=== PATIENT | male | born 1930 | race Caucasian/White ===

== ENCOUNTER 2016-02-21 05:10 | Outpatient (RCR) | payer MEDICARE, OTHER ==
--- OUTSIDE RECORDS SUMMARY | 2016-01-24 06:13 | XMS REPORT | Continuity of Care Document ---
Author Author [facility] Organization [facility] Address Unknown Phone Unavailable Care Team Providers Care Delivery And Mail Sorter Name Role Phone Unverified, Unverified PCP Unavailable Source Comments Some departments are not documenting in the electronic medical record. If you do not see the information that you expected, contact Release of Information in the Health Information Management department at [phone] for further assistance in locating additional records.[facility] Active Allergies and Adverse Reactions No Known Allergies Current Medications Prescription Sig. Disp. Refills Start End Date Status Date simvastatin (ZOCOR) 40 mg Take 40 mg by mouth at Active PO tablet bedtime daily. Aspirin 81 mg PO Tab Take by mouth. Active DOCOSAHEXANOIC ACID/EPA Take 1,000 mg by mouth Active (FISH OIL PO) twice daily. WARFARIN SODIUM (COUMADIN Take 10 mg by mouth Active PO) daily. 7.5 mg every day except tues and thurs DUTASTERIDE (AVODART PO) Take 0.5 mg by mouth. Active Daily cholecalciferol (Vitamin Take 1,000 Units by mouth Active D3) (VITAMIN D) 1,000 daily. unit PO Tab tablet diltiazem CD (CARTIA XT) Take 240 mg by mouth Active 240 mg PO capsule twice daily. [place] 450 mg PO Take by mouth. Active Cap HOMEOPATHIC DRUGS Take by mouth. Active (OSTEO-NIKOLAY PO) Active Problems Problem Noted Date Atrial flutter with rapid ventricular response (HCC) 06/05/2010 Overview: : Sucessful cardioversion AFL/ AF. 06-11-08: Echo 2D: mild cardiomegaly, EF 60%, No distinct regional wall motion abnormalities. No significant pericardial effusion. Normal valve functions with Mild Ao sclerosis. Trivial to mild MR & TR. PAP 40mmHg. LA diameter 3.6cm. 3-7-11: admitted to [place], [place] with AFL w. RVR. Hx of paroxsymal AFL & AF, treated with amiodarone. Amio discontinued several mo ago. Treated with IV dig & diltiazem in ICU, on chronic anticoagulation with warfarin for stroke prophylaxis. Hyperlipidemia 06/05/2010 Overview: Treated with simvastatin. Coronary artery disease 06/05/2010 Overview: 02-15-06: Cardiac cath in [place], [place] showed: sev ostila & prox stenosis of large caliber ramus intermedius artery. EF 50%, LV function mildly impaired, mild anterolateral hypokinesis. Moderate dissection of right iliofemerol artery at the time of cath, very tortuous vessel on R. CABG recommended to ramus intermedius at [place], [place]. 02-16-06: CABGx1: CRUZ to ramus intermedius. Carotid duplex ( DOS no known) mild disease bilaterally 1-39% with mild velocities & antegrade vertebral flow. : Myocardial perfusion imaging reportedly did not show ischemia or infarction, normal LV function with EF 64%, per Dr Horton's office notes. Hypothyroidism (acquired) 06/05/2010 Overview: : Possibly from amiodarone therapy. Amio dc'd several months ago. Leg edema 06/05/2010 Overview: : Abnormal ankle brachial indices mildly abnormal on L side. 0.8. Mild L leg swelling. History of atrial fibrillation 06/05/2010 Overview: : successful cardioversion for paroxysmal Afib. Pericardial effusion 06/05/2010 Overview: Reportedly remote history of pericardial effusion. Echo no effusion noted. Chronic renal insufficiency 06/05/2010 Overview: Creatinine range 1.5-1.6 Social History Tobacco Use Types Packs/Day Years Used Date Never Smoker Smokeless Tobacco: Never Used Alcohol Use Drinks/Week oz/Week Comments Yes 4 Shots of 2.4 liquor Last Filed Vital Signs Vital Sign Reading Time Taken Blood Pressure 131/70 06/21/2010 8:50 AM CDT Pulse 59 06/06/2010 1:06 PM CDT Temperature - - Respiratory Rate - - Height 1.753 m (5' 9") 06/21/2010 10:10 AM CDT Weight 90.4 kg (199 lb 4.7 oz) 06/21/2010 10:10 AM CDT Body Mass Index 29.42 06/21/2010 10:10 AM CDT Oxygen Saturation - - Plan of Care Health Maintenance Due Date Last Done Comments Physical (Comprehensive) 07/24/1937 Exam Pertussis Vaccine 07/24/1942 Tetanus Vaccine 07/24/1948 Shingles Vaccine 1991 Prevnar/Pneumovax (#1) 07/24/1996 Influenza Vaccine 11/17/2014 Results from Last 3 Months Not on file
[2016-01-24 06:38] LABS: INR 1.7 (0.8-1.4)
[2016-02-02 05:48] LABS: INR 2.7 (0.8-1.4); PROTHROMBIN TIME PATIENT 28.3 SEC (12.2-14.7)
[~2016-02-21 05:10] MED LIST: ASP81CT PO; AVOD0.5CAP PO; CASC450C PO; CHOL50003 PO; DIGO250T PO; DILT120C PO; DILT120C54 PO; DILT180C PO; DILT240C PO; DILT240C54 PO; FERR325C PO; FNST5T PO; GARL200T PO; LVT.05T PO; OMEG1CAP51 PO; ONDAN4ODT SL; OSTEOBIOFLEX PO; PYRI50CA PO; RAPAFLO; SILO8CAP PO; SIMV40TA2 PO; THYROID MED; VENL75CA PO; WARF7.5T PO; WRF10T PO; [UNRECOGNIZED DRUG - OTHER] PO
[2016-02-21 05:39] LABS: INR 2.1 (0.8-1.4); PROTHROMBIN TIME PATIENT 23.5 SEC (12.2-14.7)
== END 2016-04-23 | disposition home or self-care (01) ==
LOC: LAB 05:10
PROVIDERS: ATTEND Internal Medicine Cardiovascular Disease
DX: I48.91 Unspecified atrial fibrillation (principal); Z79.01 Long term (current) use of anticoagulants; Z79.899 Other long term (current) drug therapy
CPT/HCPCS: 36415; 85610

== ENCOUNTER 2016-07-04 10:19 | Outpatient (RCR) | payer MEDICARE, OTHER ==
--- OUTSIDE RECORDS SUMMARY | 2016-04-10 09:15 | XMS REPORT | Continuity of Care Document ---
Author Author [facility] Organization [facility] Address Unknown Phone Unavailable Care Team Providers Care Director Software Quality Assurance Name Role Phone Unverified, Unverified PCP Unavailable Source Comments Some departments are not documenting in the electronic medical record. If you do not see the information that you expected, contact Release of Information in the Health Information Management department at [phone] for further assistance in locating additional records.[facility] Active Allergies and Adverse Reactions No [...] 40mmHg. LA diameter 3.6cm. 3-7-11: admitted to [place], [place] with AFL w. RVR. Hx of paroxsymal AFL & AF, treated with amiodarone. Amio discontinued several mo ago. Treated with IV dig & diltiazem in ICU, on chronic anticoagulation with warfarin for stroke prophylaxis. Hyperlipidemia 06/05/2010 Overview: Treated with simvastatin. Coronary artery disease 06/05/2010 Overview: 02-15-06: Cardiac cath in [place], [place] showed: sev ostila & prox stenosis of large caliber ramus intermedius artery. EF 50%, LV function mildly impaired, mild anterolateral hypokinesis. Moderate dissection of right iliofemerol artery at the time of cath, very tortuous vessel on R. CABG recommended to ramus intermedius at [place], [place]. 02-16-06: CABGx1: CRUZ to ramus intermedius. [...]
== END 2016-07-09 | disposition home or self-care (01) ==
PROVIDERS: ATTEND Internal Medicine
DX: M50.322 Other cervical disc degeneration at C5-C6 level (principal)

== ENCOUNTER → 2016-07-06 | Outpatient (CLI) | payer MEDICARE, OTHER ==
[2016-07-06 07:11] LABS: CALCIUM 9.2 MG/DL (8.5-10.1); CREATININE SERUM 1.2 MG/DL (0.60-1.30); POTASSIUM 4.1 MMOL/L (3.6-5.0)
== END ==
LOC: LAB 06:28
PROVIDERS: ATTEND Internal Medicine
DX: E78.5 Hyperlipidemia, unspecified (principal); I48.0 Paroxysmal atrial fibrillation
CPT/HCPCS: 36415; 80048; 80061

== ENCOUNTER 2016-08-15 10:00 | Outpatient (RCR) | payer MEDICARE, OTHER | END 2016-08-29 15:35 | disposition home or self-care (01) | PROVIDERS: ATTEND Orthopaedic Surgery | DX: M50.322 Other cervical disc degeneration at C5-C6 level (principal) ==

== ENCOUNTER → 2016-12-14 | Outpatient (CLI) | payer MEDICARE, OTHER ==
[2016-12-14 05:54] LABS: ALBUMIN 3.9 GM/DL (3.2-4.5); BILIRUBIN,TOTAL 0.4 MG/DL (0.1-1.0); CALCIUM 9.4 MG/DL (8.5-10.1); CREATININE SERUM 1.16 MG/DL (0.60-1.30); TOTAL PROTEIN 6.9 GM/DL (6.4-8.2)
== END ==
LOC: LAB 04:50
PROVIDERS: ATTEND Internal Medicine Cardiovascular Disease
DX: E78.4 Other hyperlipidemia (principal); I25.10 Atherosclerotic heart disease of native coronary artery without angina pectoris
CPT/HCPCS: 36415; 80053; 80061

== ENCOUNTER 2017-08-08 10:15 | Outpatient (RCR) | payer MEDICARE, OTHER | END 2017-08-14 | disposition home or self-care (01) | PROVIDERS: ATTEND Nurse Practitioner | DX: M50.322 Other cervical disc degeneration at C5-C6 level (principal) ==

== ENCOUNTER 2017-08-17 13:41 | Emergency (ER) | payer MEDICARE, OTHER ==
[~2017-08-17] VITALS: Ht 175.3 cm; Wt 86.6 kg
--- OUTSIDE RECORDS SUMMARY | 2017-08-17 13:46 | XMS REPORT | Clinical Summary ---
Author Author [facility] Organization [facility] Address Unknown Phone Unavailable Care Team Providers Care Echocardiograph Tech Name Role Phone Unverified, Unverified Md PCP Unavailable Source Comments Some departments are not documenting in the electronic medical record. If you do not see the information that you expected, contact Release of Information in the Health Information Management department at [phone] for further assistance in locating additional records.[facility] Allergies No Known Allergies Current Medications Prescription Sig. [...] mg by mouth Active 240 mg PO twice daily. capsuleIndications: Atrial flutter with rapid ventricular response (HCC), Hyperlipidemia, Coronary artery disease Cascara [place] 450 mg PO Take by mouth. Active CapIndications: Atrial flutter with rapid ventricular response (HCC), Hyperlipidemia, Coronary artery disease HOMEOPATHIC DRUGS Take by mouth. Active (OSTEO-NIKOLAY PO)Indications: Atrial flutter with rapid ventricular response (HCC), Hyperlipidemia, Coronary artery disease Active Problems Problem Noted Date Atrial flutter with rapid ventricular response (HCC) 06/05/2010 Overview: : Sucessful cardioversion AFL/ AF. 06-11-08: Echo 2D: mild cardiomegaly, EF 60%, No distinct regional wall motion abnormalities. No significant pericardial effusion. Normal valve functions with Mild Ao sclerosis. Trivial to mild MR & TR. PAP 40mmHg. LA diameter 3.6cm. 05-23-10: admitted to [place], [place] with AFL w. RVR. Hx of paroxsymal AFL & AF, treated with amiodarone. Amio discontinued several mo ago. Treated with IV dig & diltiazem in ICU, on chronic anticoagulation with warfarin for stroke prophylaxis. Hyperlipidemia 06/05/2010 Overview: Treated with simvastatin. Coronary artery disease 06/05/2010 Overview: 02-15-06: Cardiac cath in [place], [place] showed: sev ostila & prox stenosis of large caliber ramus intermedius artery. EF 50%, LV function mildly impaired, mild anterolateral hypokinesis. Moderate dissection of right iliofemerol artery at the time of cath, very tortuous vessel on R. CABG recommended to ramus intermedius at [place], [place]. 02-16-06: CABGx1: CRUZ to ramus intermedius. [...] renal insufficiency 06/05/2010 Overview: Creatinine range 1.5-1.6 Family History Relation Name Status Comments Father cancer Mother cancer Social History Tobacco Use Types Packs/Day Years Used Date Never Smoker Smokeless Tobacco: Never Used Alcohol Use Drinks/Week oz/Week Comments Yes 4 Shots of 2.4 liquor Sex Assigned at Date Recorded Not on file Last Filed Vital Signs Vital Sign Reading Time Taken Blood Pressure 131/70 06/21/2010 8:50 AM CDT Pulse 59 06/06/2010 1:06 PM CDT Temperature - - Respiratory Rate - - Oxygen Saturation - - Inhaled Oxygen - - Concentration Weight 90.4 kg (199 lb 4.7 oz) 06/21/2010 10:10 AM CDT Height 175.3 cm (5' 9") 06/21/2010 10:10 AM CDT Body Mass Index 29.43 06/21/2010 10:10 AM CDT Plan of Treatment Health Maintenance Due Date Last Done Comments PHYSICAL (COMPREHENSIVE) 07/24/1937 EXAM PERTUSSIS VACCINE 07/24/1942 TETANUS VACCINE 07/24/1948 SHINGLES VACCINE 1991 PNEUMONIA (PCV13/PPSV23) 07/24/1996 VACCINES (1 of 2 - PCV13) INFLUENZA VACCINE 12/17/2017 Results Not on filefrom Last 3 Months
--- OUTSIDE RECORDS SUMMARY | 2017-08-17 13:50 | XMS REPORT | Continuity of Care Document ---
Author Author [facility] Organization [facility] Address Unknown Phone Unavailable Allergies Active Description Code Type Severity Reaction Onset Reported/Identified Relationship to Patient Clinical Status Yes No Known Drug Allergies [id number] Drug Allergy Unknown N/A 07/17/2007 Medications There is no data. 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 09/02/2008 Ot 427.31 09/02/2008 Ot V58.61 12/16/2008 Ot 427.31 12/16/2008 Ot V58.61 03/17/2009 Ot 272.4 03/17/2009 Ot 414.01 03/17/2009 Ot 427.31 03/17/2009 Ot V58.61 03/17/2009 Ot V58.69 06/20/2009 Ot 427.31 06/20/2009 Ot V58.61 09/18/2009 Ot 244.3 09/18/2009 Ot 272.4 09/18/2009 Ot 401.9 09/18/2009 Ot 414.00 09/18/2009 Ot 427.31 09/18/2009 Ot 600.00 09/18/2009 Ot E849.0 09/18/2009 Ot E942.0 09/18/2009 Ot V45.81 09/18/2009 Ot V58.61 09/20/2009 Ot 427.31 09/20/2009 Ot V58.61 12/20/2009 Ot 427.31 12/20/2009 Ot V58.61 04/11/2010 Ot 427.31 04/11/2010 Ot V58.61 05/11/2010 Ot 523.8 05/18/2010 Ot 719.45 05/18/2010 Ot 722.52 05/18/2010 Ot 723.1 05/18/2010 Ot V57.1 05/24/2010 Ot 244.3 05/24/2010 Ot 272.4 05/24/2010 Ot 414.01 05/24/2010 Ot 427.32 05/24/2010 Ot 585.9 05/24/2010 Ot 790.92 05/24/2010 Ot E942.0 05/24/2010 Ot V45.81 05/24/2010 Ot V58.61 07/11/2010 Ot 427.31 07/11/2010 Ot V58.61 08/09/2010 Ot 397.0 08/09/2010 Ot 411.81 08/09/2010 Ot 414.01 08/09/2010 Ot 424.0 08/09/2010 Ot 427.31 08/09/2010 Ot 427.32 08/09/2010 Ot 585.9 08/09/2010 Ot 780.79 08/09/2010 Ot V58.61 08/09/2010 Ot V58.66 08/09/2010 Ot V58.69 10/12/2010 Ot 427.31 10/12/2010 Ot V58.61 01/08/2011 Ot 272.4 01/08/2011 Ot 414.00 01/08/2011 Ot 427.31 01/08/2011 Ot V58.61 01/08/2011 Ot V58.69 04/26/2011 Ot 272.4 04/26/2011 Ot 414.00 04/26/2011 Ot 427.31 04/26/2011 Ot V58.61 04/26/2011 Ot V58.69 08/09/2011 Ot 272.4 08/09/2011 Ot 414.00 08/09/2011 Ot 427.31 08/09/2011 Ot V58.61 08/09/2011 Ot V58.69 11/22/2011 Ot 272.4 11/22/2011 Ot 414.00 11/22/2011 Ot 427.31 11/22/2011 Ot V58.61 11/22/2011 Ot V58.69 02/21/2012 Ot 272.4 HYPERLIPIDEMIA NEC/NOS 02/21/2012 Ot 414.00 CORON ATHEROSCLER NOS TYPE VESSEL, NATIV 02/21/2012 Ot 427.31 ATRIAL FIBRILLATION 02/21/2012 Ot V58.61 ANTICOAGULANTS,LT,CURRENT USE 02/21/2012 Ot V58.69 OTH MED,LT, CURRENT USE 03/13/2012 Ot 787.03 VOMITING ALONE 03/13/2012 Ot 787.91 DIARRHEA 06/05/2012 Ot 427.31 ATRIAL FIBRILLATION 06/05/2012 Ot V58.61 ANTICOAGULANTS,LT,CURRENT USE 09/10/2012 ROSENDO HATCH 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 Ot 427.31 ATRIAL FIBRILLATION 09/10/2012 ROSENDO HATCH 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 Ot V58.61 ANTICOAGULANTS,LT,CURRENT USE 12/22/2012 BELA WHITTAKER MD Ot 244.9 HYPOTHYROIDISM NOS 12/22/2012 BELA WHITTAKER MD Ot 272.4 HYPERLIPIDEMIA NEC/NOS 12/22/2012 BELA WHITTAKER MD Ot 403.90 HYPTNSV CHR KID DIS, UNSPEC, W CHR KD ST 12/22/2012 BELA WHITTAKER MD Ot 414.00 CORON ATHEROSCLER NOS TYPE VESSEL, NATIV 12/22/2012 BELA WHITTAKER MD Ot 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 12/22/2012 BELA WHITTAKER MD Ot 427.31 ATRIAL FIBRILLATION 12/22/2012 BELA WHITTAKER MD Ot 427.32 ATRIAL FLUTTER 12/22/2012 BELA WHITTAKER MD Ot 427.89 CARDIAC DYSRHYTHMIAS NEC 12/22/2012 BELA WHITTAKER MD Ot 458.9 HYPOTENSION NOS 12/22/2012 BELA WHITTAKER MD Ot 585.9 CHRONIC KIDNEY DISEASE, UNSPECIFIED 12/22/2012 BELA WHITTAKER MD Ot 600.00 HYPERTROPHY (BENIGN) OF PROSTATE W/O URI 12/22/2012 BELA WHITTAKER MD Ot 995.27 OTHER DRUG ALLERGY 12/22/2012 BELA WHITTAKER MD Ot E942.0 ADV EFF CARD RHYTH REGUL 12/22/2012 BELA WHITTAKER MD Ot V45.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 12/25/2012 ROSENDO HATCH 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 Ot 427.31 ATRIAL FIBRILLATION 12/25/2012 ROSENDO HATCH 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 Ot V58.61 ANTICOAGULANTS,LT,CURRENT USE 01/02/2013 SUDARSHAN WANG, JAMIN [place]berry Ot 427.31 ATRIAL FIBRILLATION 04/02/2013 DANDRE WANG FACC, MICHLELE SALDIVARP CCDS Ot 427.31 ATRIAL FIBRILLATION 04/02/2013 DANDRE WANG FACC, MICHELLE SALDIVARP CCDS Ot V58.61 ANTICOAGULANTS,LT,CURRENT USE 04/02/2013 DANDRE WANG FACC, MICHELLE SALDIVARP CCDS Ot V58.83 ENCOUNTER FOR THERAPEUTIC DRUG MONITORIN 07/02/2013 DANDRE MD FACC, ALI FACP CCDS Ot 427.31 ATRIAL FIBRILLATION 07/02/2013 DANDRE WANG FACC, ALI FACP CCDS Ot V58.61 ANTICOAGULANTS,LT,CURRENT USE 07/02/2013 DANDRE WANG FACC, ALI FACP CCDS Ot V58.83 ENCOUNTER FOR THERAPEUTIC DRUG MONITORIN 10/01/2013 DANDRE WANG FACInés, ALI FACP CCDS Ot 427.31 ATRIAL FIBRILLATION 10/01/2013 DANDRE WANG FACInés, ALI FACP CCDS Ot V58.61 ANTICOAGULANTS,LT,CURRENT USE 10/01/2013 DANDRE MD FACC, ALI FACP CCDS Ot V58.83 ENCOUNTER FOR THERAPEUTIC DRUG MONITORIN 01/07/2014 DANDRE WANG FACC, ALI FACP CCDS Ot 427.31 ATRIAL FIBRILLATION 01/07/2014 DANDRE WANG FACC, ALI FACP CCDS Ot V58.61 ANTICOAGULANTS,LT,CURRENT USE 01/07/2014 DANDRE WANG FACInés, ALI FACP CCDS Ot V58.83 ENCOUNTER FOR THERAPEUTIC DRUG MONITORIN 02/09/2014 Ot 272.4 02/09/2014 Ot 414.01 02/09/2014 Ot 427.31 02/09/2014 Ot V58.61 02/09/2014 Ot V58.69 02/09/2014 Ot 721.3 02/09/2014 Ot 414.00 02/09/2014 Ot 427.31 02/09/2014 Ot V45.81 02/09/2014 Ot 729.5 02/09/2014 Ot 729.81 02/09/2014 Ot 427.32 02/09/2014 Ot 427.31 02/09/2014 Ot V58.61 02/09/2014 Ot 414.00 02/09/2014 Ot 427.31 02/09/2014 Ot 272.4 02/09/2014 Ot 414.00 02/09/2014 Ot 427.31 02/09/2014 Ot V58.61 02/09/2014 Ot V58.69 02/09/2014 Ot 272.0 02/09/2014 Ot 414.00 02/09/2014 Ot 794.5 02/09/2014 Ot 244.9 02/09/2014 Ot 244.9 02/09/2014 Ot 244.9 02/09/2014 Ot 427.31 02/09/2014 Ot V58.69 02/09/2014 REMEDIOS WANG, BELA Howard Ot 272.4 02/09/2014 BELA WHITTAKER MD Ot 427.31 02/09/2014 BELA WHITTAKER MD Ot 244.9 02/09/2014 BELA WHITTAKER MD Ot 272.0 02/09/2014 BELA WHITTAKER MD Ot 427.31 02/09/2014 BELA WHITTAKER MD Ot 356.9 02/09/2014 EAGLE AYALA 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 Ot 723.0 02/09/2014 EAGLE AYALA 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 Ot V45.4 02/09/2014 EAGLE AYALA 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 Ot 722.0 02/09/2014 EAGLE AYALA 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 Ot 726.12 02/09/2014 EAGLE AYALA 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 Ot V57.1 02/09/2014 DANDRE WANG FACC, ALI FACP CCDS Ot 427.31 02/09/2014 DANDRE WANG FACC, ALI FACP CCDS Ot V58.61 02/09/2014 DANDRE WANG FACC, ALI FACP CCDS Ot V58.83 02/24/2014 BLEA WHITTAKER MD Ot 211.3 BENIGN NEOPLASM LG BOWEL 02/24/2014 BELA WHITTAKER MD Ot 562.10 DIVERTICULOSIS COLON (W/O MENT OF HEMORR 02/24/2014 BELA WHITTAKER MD Ot 569.89 INTESTINAL DISORDERS NEC 02/24/2014 BELA WHITTAKER MD Ot V16.0 FAMILY HX-GI MALIGNANCY 02/24/2014 BELA WHITTAKER MD Ot V58.61 ANTICOAGULANTS,LT,CURRENT USE 02/24/2014 BELA WHITTAKER MD Ot V76.51 SCREEN MAL NEOP-COLON 03/07/2014 Ot 272.4 03/07/2014 Ot 414.01 03/07/2014 Ot 427.31 03/07/2014 Ot V58.61 03/07/2014 Ot V58.69 03/07/2014 Ot 721.3 03/07/2014 Ot 414.00 03/07/2014 Ot 427.31 03/07/2014 Ot V45.81 03/07/2014 Ot 729.5 03/07/2014 Ot 729.81 03/07/2014 Ot 427.32 03/07/2014 Ot 427.31 03/07/2014 Ot V58.61 03/07/2014 Ot 414.00 03/07/2014 Ot 427.31 03/07/2014 Ot 272.4 03/07/2014 Ot 414.00 03/07/2014 Ot 427.31 03/07/2014 Ot V58.61 03/07/2014 Ot V58.69 03/07/2014 Ot 272.0 03/07/2014 Ot 414.00 03/07/2014 Ot 794.5 03/07/2014 Ot 244.9 03/07/2014 Ot 244.9 03/07/2014 Ot 244.9 03/07/2014 Ot 427.31 03/07/2014 Ot V58.69 03/07/2014 REMEDIOS WANG, BELA Howard Ot 272.4 03/07/2014 REMEDIOS WANG, BELA Howard Ot 427.31 03/07/2014 REMEDIOS WANG, BELA Howard Ot 244.9 03/07/2014 REMEDIOS WANG, BELA Howard Ot 272.0 03/07/2014 REMEDIOS WANG, BELA Howard Ot 427.31 03/07/2014 REMEDIOS WANG, BELA Howard Ot 356.9 03/07/2014 EAGLE AYALA 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 Ot 723.0 03/07/2014 EAGLE AYALA 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 Ot V45.4 03/07/2014 EAGLE AYALA 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 Ot 722.0 03/07/2014 EAGLE AYALA 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 Ot 726.12 03/07/2014 EAGLE AYALA 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 Ot V57.1 03/07/2014 DANDRE WANG FACC, ALI FACP CCDS Ot 427.31 03/07/2014 DANDRE WANG FACC, ALI FACP CCDS Ot V58.61 03/07/2014 DANDRE WANG FACC, ALI FACP CCDS Ot V58.83 03/07/2014 REMEDIOS WANG, BELA Howard Ot 414.00 03/07/2014 BELA WHITTAKER MD Ot 427.31 03/07/2014 REMEDIOS WANG, BELA Howard Ot V72.84 03/09/2014 REMEDIOS WANG, BELA Howard Ot 414.00 03/09/2014 BELA WHITTAKER MD Ot 427.31 03/10/2014 EAGLE AYALA 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 Ot 722.0 03/10/2014 EAGLE AYALA 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 Ot 726.12 03/10/2014 EAGLE AYALA 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 Ot V57.1 03/10/2014 DANDRE WANG FACC, MICHELLE SALDIVARP CCDS Ot 427.31 03/10/2014 DANDRE WANG FACC, MICHELLE FACP CCDS Ot V58.61 03/10/2014 DANDRE WANG FACC, MICHELLE FACP CCDS Ot V58.83 03/27/2014 EAGLE AYALA 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 Ot 722.0 03/27/2014 EAGLE AYALA 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 Ot 726.12 03/27/2014 EAGLE AYALA 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 Ot V57.1 04/08/2014 DANDRE WANG FACC, MICHELLE SALDIVARP CCDS Ot 427.31 ATRIAL FIBRILLATION 04/08/2014 DANDRE WANG FACC, MICHELLE SALDIVARP CCDS Ot V58.61 ANTICOAGULANTS,LT,CURRENT USE 04/08/2014 DANDRE WANG FACC, MICHELLE FACP CCDS Ot V58.83 ENCOUNTER FOR THERAPEUTIC DRUG MONITORIN 04/14/2014 EAGLE AYALA 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 Ot 722.0 CERVICAL DISC DISPLACMNT 04/14/2014 EAGLE AYALA 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 Ot 726.12 BICIPITAL TENOSYNOVITIS 04/14/2014 EAGLE AYALA 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 Ot V57.1 PHYSICAL THERAPY NEC 04/29/2014 Ot 427.31 04/29/2014 Ot V58.61 04/29/2014 Ot V58.83 04/29/2014 BELA WHITTAKER MD Ot 414.00 04/29/2014 BELA WHITTAKER MD Ot 427.31 04/29/2014 Ot 272.4 04/29/2014 Ot 414.01 04/29/2014 Ot 427.31 04/29/2014 Ot V58.61 04/29/2014 Ot V58.69 04/29/2014 Ot 721.3 04/29/2014 Ot 414.00 04/29/2014 Ot 427.31 04/29/2014 Ot V45.81 04/29/2014 Ot 729.5 04/29/2014 Ot 729.81 04/29/2014 Ot 427.32 04/29/2014 Ot 427.31 04/29/2014 Ot V58.61 04/29/2014 Ot 414.00 04/29/2014 Ot 427.31 04/29/2014 Ot 272.4 04/29/2014 Ot 414.00 04/29/2014 Ot 427.31 04/29/2014 Ot V58.61 04/29/2014 Ot V58.69 04/29/2014 Ot 272.0 04/29/2014 Ot 414.00 04/29/2014 Ot 794.5 04/29/2014 Ot 244.9 04/29/2014 Ot 244.9 04/29/2014 Ot 244.9 04/29/2014 Ot 427.31 04/29/2014 Ot V58.69 04/29/2014 REMEDIOS WANG, BELA Howard Ot 272.4 04/29/2014 REMEDIOS WANG, BELA Howard Ot 427.31 04/29/2014 REMEDIOS WANG, BELA Howard Ot 244.9 04/29/2014 REMEDIOS WANG, BELA Howard Ot 272.0 04/29/2014 REMEDIOS WANG, BELA Howard Ot 427.31 04/29/2014 REMEDIOS WANG, BELA Howard Ot 356.9 04/29/2014 EAGLE AYALA 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 Ot 723.0 04/29/2014 EAGLE AYALA 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 Ot V45.4 04/29/2014 REMEDIOS WANG, BELA Howard Ot 414.00 04/29/2014 REMEDIOS WANG, BELA Howard Ot 427.31 04/29/2014 BELA WHITTAKER MD Ot V72.84 04/29/2014 Ot 427.31 04/29/2014 Ot V58.61 04/29/2014 Ot V58.83 04/29/2014 EAGLE AYALA 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 Ot 722.0 04/29/2014 EAGLE AYALA 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 Ot 726.12 04/29/2014 EAGLE AYALA 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 Ot V57.1 04/29/2014 Ot 427.31 04/29/2014 Ot V58.61 04/29/2014 Ot V58.83 04/30/2014 DANDRE WANG FACC, ALI FACP CCDS Ot 427.31 04/30/2014 DANDRE WANG FACC, ALI FACP CCDS Ot V58.61 04/30/2014 DANDRE WANG FACC, ALI FACP CCDS Ot V58.69 06/15/2014 DANDRE WANG FACC, ALI FACP CCDS Ot 427.31 06/15/2014 DANDRE WANG FACC, ALI FACP CCDS Ot V58.61 06/15/2014 DANDRE WANG FACC, ALI FACP CCDS Ot V58.69 07/28/2014 DANDRE WANG FACInés, MICHELLE SALDIVARP CCDS Ot 427.31 ATRIAL FIBRILLATION 07/28/2014 DANDRE WANG FACInés, MICHELLE SALDIVARP CCDS Ot V58.61 ANTICOAGULANTS,LT,CURRENT USE 07/28/2014 DANDRE WANG FACC, MICHELLE SALDIVARP CCDS Ot V58.69 OTH MED,LT,CURRENT USE 08/05/2014 Ot 721.3 08/05/2014 Ot 414.00 08/05/2014 Ot 427.31 08/05/2014 Ot V45.81 08/05/2014 Ot 729.5 08/05/2014 Ot 729.81 08/05/2014 Ot 427.32 08/05/2014 Ot 427.31 08/05/2014 Ot V58.61 08/05/2014 Ot 414.00 08/05/2014 Ot 427.31 08/05/2014 Ot 272.4 08/05/2014 Ot 414.00 08/05/2014 Ot 427.31 08/05/2014 Ot V58.61 08/05/2014 Ot V58.69 08/05/2014 Ot 272.0 08/05/2014 Ot 414.00 08/05/2014 Ot 794.5 08/05/2014 Ot 244.9 08/05/2014 Ot 244.9 08/05/2014 Ot 244.9 08/05/2014 Ot 427.31 08/05/2014 Ot V58.69 08/05/2014 REMEDIOS WANG, BELA Howard Ot 272.4 08/05/2014 REMEDIOS WANG, BELA Howard Ot 427.31 08/05/2014 REMEDIOS WANG, BELA Howard Ot 244.9 08/05/2014 REMEDIOS WANG, BELA Howard Ot 272.0 08/05/2014 REMEDIOS WANG, BELA Howard Ot 427.31 08/05/2014 REMEDIOS WANG, BELA Howard Ot 356.9 08/05/2014 EAGLE AYALA 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 Ot 723.0 08/05/2014 EAGLE AYALA 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 Ot V45.4 08/05/2014 REMEDIOS WANG, BELA Howard Ot 414.00 08/05/2014 REMEDIOS WANG, BELA Howard Ot 427.31 08/05/2014 REMEDIOS WANG, BELA Howard Ot V72.84 08/05/2014 Ot 427.31 08/05/2014 Ot V58.61 08/05/2014 Ot V58.83 08/05/2014 DANDRE WANG FACC, ALI FACP CCDS Ot 427.31 08/05/2014 DANDRE WANG FACC, ALI FACP CCDS Ot V58.61 08/05/2014 DANDRE WANG FACC, ALI FACP CCDS Ot V58.69 08/05/2014 DANDRE WANG FACC, ALI FACP CCDS Ot 427.31 08/05/2014 DANDER WANG FACC, ALI FACP CCDS Ot V58.61 08/05/2014 DANDRE WANG FACC, ALI FACP CCDS Ot V58.69 08/27/2014 DANDRE WANG FACC, ALI FACP CCDS Ot 272.4 08/27/2014 DANDRE WANG FACC, ALI FACP CCDS Ot 414.00 08/27/2014 DANDRE WANG FACC, ALI FACP CCDS Ot 427.32 08/27/2014 DANDRE WANG FACC, ALI FACP CCDS Ot 433.10 08/27/2014 DANDRE WANG FACC, ALI FACP CCDS Ot 443.9 08/27/2014 DANDRE WANG FACC, ALI FACP CCDS Ot 585.9 08/27/2014 DANDRE WANG FACC, ALI FACP CCDS Ot V58.61 08/31/2014 DANDRE WANG FACC, ALI FACP CCDS Ot 427.31 08/31/2014 DANDRE WANG FACC, ALI FACP CCDS Ot V58.61 08/31/2014 DANDRE WANG FACC, ALI FACP CCDS Ot V58.69 09/14/2014 REMEDIOS WANG, BELA Howard Ot 414.00 09/14/2014 BELA WHITTAKER MD Ot 427.31 09/15/2014 DANDRE WANG FACC, ALI FACP CCDS Ot 272.4 09/15/2014 DANDRE WANG FACC, ALI FACP CCDS Ot 414.00 09/15/2014 DANDRE WANG FACC, ALI FACP CCDS Ot 427.32 09/15/2014 DANDRE WANG FACC, ALI FACP CCDS Ot 443.9 09/15/2014 DANDRE WANG FACC, ALI FACP CCDS Ot 585.9 09/15/2014 DANDRE WANG FACC, ALI FACP CCDS Ot V58.61 09/15/2014 DANDRE WANG FACC, ALI FACP CCDS Ot 272.4 09/15/2014 DANDRE WANG FACC, ALI FACP CCDS Ot 414.00 09/15/2014 DANDRE WANG FACC, ALI FACP CCDS Ot 427.32 09/15/2014 DANDRE WANG FACC, ALI FACP CCDS Ot 443.9 09/15/2014 DANDRE WANG FACC, ALI FACP CCDS Ot 585.9 09/15/2014 DANDRE WANG FACC, ALI FACP CCDS Ot V58.61 10/07/2014 DANDRE WANG FACC, ALI FACP CCDS Ot 272.4 10/07/2014 DANDRE WANG FACC, ALI FACP CCDS Ot 414.00 10/07/2014 DANDRE WANG FACC, ALI FACP CCDS Ot 427.32 10/07/2014 DANDRE WANG FACC, ALI FACP CCDS Ot 443.9 10/07/2014 DANDRE WANG FACC, ALI FACP CCDS Ot 585.9 10/07/2014 DANDRE WANG FACC, ALI FACP CCDS Ot V58.61 10/13/2014 DANDRE WANG FACC, ALI FACP CCDS Ot 427.31 ATRIAL FIBRILLATION 10/13/2014 DANDRE WANG FACC, ALI FACP CCDS Ot V58.61 ANTICOAGULANTS,LT,CURRENT USE 10/13/2014 DANDRE WANG FACC, ALI FACP CCDS Ot V58.69 [facility] 10/16/2014 DANDRE WANG FACC, ALI FACP CCDS Ot 427.31 10/16/2014 DANDRE WANG FACC, ALI FACP CCDS Ot V58.61 10/16/2014 DANDRE WANG FACC, ALI FACP CCDS Ot V58.69 10/19/2014 DANDRE WANG FACC, ALI FACP CCDS Ot 427.31 10/19/2014 DANDRE WANG FACC, ALI FACP CCDS Ot V58.61 10/19/2014 DANDRE WANG FACC, ALI FACP CCDS Ot V58.69 11/02/2014 DANDRE WANG FACC, ALI FACP CCDS Ot 272.4 11/02/2014 DANDRE WANG FACC, ALI FACP CCDS Ot 414.00 11/02/2014 DANDRE WANG FACC, ALI FACP CCDS Ot 427.32 11/02/2014 DANDRE WANG FACC, ALI FACP CCDS Ot 443.9 11/02/2014 DANDRE WANG FACC, ALI FACP CCDS Ot 585.9 11/02/2014 DANDRE WANG FACC, ALI FACP CCDS Ot V58.61 11/10/2014 Ot 721.3 11/10/2014 Ot 414.00 11/10/2014 Ot 427.31 11/10/2014 Ot V45.81 11/10/2014 Ot 729.5 11/10/2014 Ot 729.81 11/10/2014 Ot 427.32 11/10/2014 Ot 427.31 11/10/2014 Ot V58.61 11/10/2014 Ot 414.00 11/10/2014 Ot 427.31 11/10/2014 Ot 272.4 11/10/2014 Ot 414.00 11/10/2014 Ot 427.31 11/10/2014 Ot V58.61 11/10/2014 Ot V58.69 11/10/2014 Ot 272.0 11/10/2014 Ot 414.00 11/10/2014 Ot 794.5 11/10/2014 Ot 244.9 11/10/2014 Ot 244.9 11/10/2014 Ot 244.9 11/10/2014 Ot 427.31 11/10/2014 Ot V58.69 11/10/2014 REMEDIOS WANG, BELA Howard Ot 272.4 11/10/2014 REMEDIOS WANG, BELA Howard Ot 427.31 11/10/2014 REMEDIOS WANG, BELA Howard Ot 244.9 11/10/2014 REMEDIOS WANG, BELA Howard Ot 272.0 11/10/2014 REMEDIOS WANG, BELA Howard Ot 427.31 11/10/2014 REMEDIOS WANG, BELA Howard Ot 356.9 11/10/2014 EAGLE AYALA 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 Ot 723.0 11/10/2014 EAGLE AYALA 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 Ot V45.4 11/10/2014 REMEDIOS WANG, BELA Howard Ot 414.00 11/10/2014 REMEDIOS WANG, BELA Howard Ot 427.31 11/10/2014 BELA WHITTAKER MD Ot V72.84 11/10/2014 Ot 427.31 11/10/2014 Ot V58.61 11/10/2014 Ot V58.83 11/10/2014 DANDRE WANG FACC, ALI FACP CCDS Ot 427.31 11/10/2014 DANDRE WANG FACC, ALI FACP CCDS Ot V58.61 11/10/2014 DANDRE WANG FACC, ALI FACP CCDS Ot V58.69 11/10/2014 DANDRE WANG FACC, ALI FACP CCDS Ot 272.4 11/10/2014 DANDRE WANG FACC, ALI FACP CCDS Ot 414.00 11/10/2014 DANDRE WANG FACC, ALI FACP CCDS Ot 427.32 11/10/2014 DANDRE WANG FACC, ALI FACP CCDS Ot 433.10 11/10/2014 DANDRE WANG FACC, ALI FACP CCDS Ot 443.9 11/10/2014 DANDRE WANG FACC, ALI FACP CCDS Ot 585.9 11/10/2014 DANDRE WANG FACC, ALI FACP CCDS Ot V58.61 11/10/2014 DANDRE WANG FACC, ALI FACP CCDS Ot 272.4 11/10/2014 DANDRE WANG FACC, ALI FACP CCDS Ot 414.00 11/10/2014 DANDRE WANG FACC, ALI FACP CCDS Ot 427.32 11/10/2014 DANDRE WANG FACC, ALI FACP CCDS Ot 443.9 11/10/2014 DANDRE WANG FACC, ALI FACP CCDS Ot 585.9 11/10/2014 DANDRE WANG FACC, ALI FACP CCDS Ot V58.61 11/10/2014 REMEDIOS WANG, BELA Howard Ot 414.00 11/10/2014 REMEDIOS WANG, BELA Howard Ot 427.31 11/10/2014 DANDRE WANG FACC, ALI FACP CCDS Ot 427.31 11/10/2014 DANDRE WANG FACC, ALI FACP CCDS Ot V58.61 11/10/2014 DANDRE WANG FACC, ALI FACP CCDS Ot V58.69 11/10/2014 DANDRE WANG FACC, ALI FACP CCDS Ot 427.31 11/10/2014 DANDRE WANG FACC, ALI FACP CCDS Ot V58.61 11/10/2014 DANDRE WANG FACC, ALI FACP CCDS Ot V58.69 11/30/2014 Ot 721.3 11/30/2014 Ot 414.00 11/30/2014 Ot 427.31 11/30/2014 Ot V45.81 11/30/2014 Ot 729.5 11/30/2014 Ot 729.81 11/30/2014 Ot 427.32 11/30/2014 Ot 427.31 11/30/2014 Ot V58.61 11/30/2014 Ot 414.00 11/30/2014 Ot 427.31 11/30/2014 Ot 272.4 11/30/2014 Ot 414.00 11/30/2014 Ot 427.31 11/30/2014 Ot V58.61 11/30/2014 Ot V58.69 11/30/2014 Ot 272.0 11/30/2014 Ot 414.00 11/30/2014 Ot 794.5 11/30/2014 Ot 244.9 11/30/2014 Ot 244.9 11/30/2014 Ot 244.9 11/30/2014 Ot 427.31 11/30/2014 Ot V58.69 11/30/2014 REMEDIOS WANG, BELA Howard Ot 272.4 11/30/2014 REMEDIOS WANG, BELA Howard Ot 427.31 11/30/2014 REMEDIOS WANG, BELA Howard Ot 244.9 11/30/2014 REMEDIOS WANG, BELA Howard Ot 272.0 11/30/2014 REMEDIOS WANG, BELA Howard Ot 427.31 11/30/2014 ERMEDIOS WANG, BELA Howard Ot 356.9 11/30/2014 EAGLE AYALA 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 Ot 723.0 11/30/2014 EAGLE [employer] 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 Ot V45.4 11/30/2014 REMEDIOS WANG, BELA Howard Ot 414.00 11/30/2014 REMEDIOS WANG, BELA Howard Ot 427.31 11/30/2014 REMEDIOS WANG, BELA Howard Ot V72.84 11/30/2014 Ot 427.31 11/30/2014 Ot V58.61 11/30/2014 Ot V58.83 11/30/2014 DANDRE WANG FACC, ALI FACP CCDS Ot 427.31 11/30/2014 DANDRE WANG FACC, ALI FACP CCDS Ot V58.61 11/30/2014 DANDRE WANG FACC, ALI FACP CCDS Ot V58.69 11/30/2014 DANDRE WANG FACC, ALI FACP CCDS Ot 272.4 11/30/2014 DANDRE WANG FACC, ALI FACP CCDS Ot 414.00 11/30/2014 DANDRE WANG FACC, ALI FACP CCDS Ot 427.32 11/30/2014 DANDRE WANG FACC, ALI FACP CCDS Ot 433.10 11/30/2014 DANDRE WANG FACC, ALI FACP CCDS Ot 443.9 11/30/2014 DANDRE WANG FACC, ALI FACP CCDS Ot 585.9 11/30/2014 DANDRE AWNG FACC, ALI FACP CCDS Ot V58.61 11/30/2014 DANDRE WANG FACC, ALI FACP CCDS Ot 272.4 11/30/2014 DANDRE WANG FACC, ALI FACP CCDS Ot 414.00 11/30/2014 DANDRE WANG FACC, ALI FACP CCDS Ot 427.32 11/30/2014 DANDRE WANG FACC, ALI FACP CCDS Ot 443.9 11/30/2014 DANDRE WANG FACC, ALI FACP CCDS Ot 585.9 11/30/2014 DANDRE WANG FACC, ALI FACP CCDS Ot V58.61 11/30/2014 BELA WHITTAKER MD Ot 414.00 11/30/2014 BELA WHITTAKER MD Ot 427.31 11/30/2014 DANDRE WANG FAC, ALI FACP CCDS Ot 427.31 11/30/2014 DANDRE SALDIVAR, ALI FACP CCDS Ot V58.61 11/30/2014 DANDRE SALDIVARC, ALI FACP CCDS Ot V58.69 12/01/2014 EAGLE [employer] 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 Ot 722.4 12/01/2014 EAGLE [employer] 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 Ot V57.1 12/16/2014 DANDRE SALDIVAR, ALI FACP CCDS Ot 427.31 ATRIAL FIBRILLATION 12/16/2014 DANDRE SALDIVARC, ALI FACP CCDS Ot V58.61 ANTICOAGULANTS,LT,CURRENT USE 12/16/2014 DANDRE SALDIVARC, ALI FACP CCDS Ot V58.69 OTH MED,LT,CURRENT USE 12/16/2014 EAGLE [employer] 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 Ot 722.4 CERVICAL DISC DEGEN 12/16/2014 EAGLE A[employer] 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 Ot V57.1 PHYSICAL THERAPY NEC 12/18/2014 EAGLE AY[employer] 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 Ot 722.4 12/18/2014 EAGLE A[employer] 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 Ot V57.1 01/01/2015 DANDRE SALDIVARC, ALI FACP CCDS Ot 427.31 01/01/2015 DANDRE SALDIVARC, ALI FACP CCDS Ot V58.61 01/01/2015 DANDRE SALDIVARC, ALI FACP CCDS Ot V58.69 01/10/2015 EGALE AYALA 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 Ot 722.4 01/10/2015 EAGLE A[employer] 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 Ot V57.1 02/08/2015 DANDRE SALDIVARC, ALI FACP CCDS Ot I48.91 02/08/2015 DANDRE SALDIVARC, ALI FACP CCDS Ot Z79.01 02/08/2015 DANDRE SALDIVARC, ALI FACP CCDS Ot Z79.899 02/15/2015 EAGLE [employer] 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 Ot M50.30 02/18/2015 EAGLE AY[employer] 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 Ot M50.30 OTHER CERVICAL DISC DEGENERATION, UNSP C 03/31/2015 DANDRE WANG FACC, ALI FACP CCDS Ot I48.91 UNSPECIFIED ATRIAL FIBRILLATION 03/31/2015 DANDRE WANG FACC, ALI FACP CCDS Ot Z79.01 OLEO HASHER AND RENDERER (CURRENT) USE OF ANTICOAGULANT 03/31/2015 DANDRE WANG FACC, ALI FACP CCDS Ot Z79.899 OTHER HALF-WAY (CURRENT) DRUG THERAPY 04/15/2015 DANDRE WANG FACC, ALI FACP CCDS Ot I48.91 04/15/2015 DANDRE SALDIVARC, ALI FACP CCDS Ot Z79.01 04/15/2015 DANDRE WANG FACC, ALI FACP CCDS Ot Z79.899 05/14/2015 DANDRE WANG FACC, ALI FACP CCDS Ot I48.91 05/14/2015 DANDRE SALDIVARC, ALI FACP CCDS Ot Z79.01 05/14/2015 DANDRE WANG FACC, ALI FACP CCDS Ot Z79.899 06/22/2015 DANDRE WANG FACC, ALI FACP CCDS Ot I48.91 06/22/2015 DANDRE WANG FACC, ALI FACP CCDS Ot Z79.01 06/22/2015 DANDRE WANG FACC, ALI FACP CCDS Ot Z79.899 06/24/2015 BELA WHITTAKER MD Ot E03.9 06/24/2015 REMEDIOS WANG, BELA Howard Ot E78.5 06/24/2015 REMEDIOS WANG, BELA Howard Ot I10 06/24/2015 REMEDIOS WANG, BELA Howard Ot I25.10 06/24/2015 REMEDIOS WANG, BELA Howard Ot E03.9 06/24/2015 REMEDIOS WANG, BELA Howard Ot E78.5 06/24/2015 REMEDIOS WANG, BELA Howard Ot I10 06/24/2015 REMEDIOS WANG, BELA Howard Ot I25.10 07/13/2015 REMEDIOS WANG, BELA Howard Ot E03.9 HYPOTHYROIDISM, UNSPECIFIED 07/13/2015 REMEDIOS WANG, BELA Howard Ot E78.5 HYPERLIPIDEMIA, UNSPECIFIED 07/13/2015 REMEDIOS WANG, BELA Howard Ot I10 ESSENTIAL (PRIMARY) HYPERTENSION 07/13/2015 REMEDIOS WANG, BELA Howard Ot I25.10 ATHSCL HEART DISEASE OF [place] CORONARY 07/14/2015 DANDRE WANG FACC, ALI FACP CCDS Ot I48.91 UNSPECIFIED ATRIAL FIBRILLATION 07/14/2015 DANDRE WANG FACC, ALI FACP CCDS Ot Z79.01 OLEO HASHER AND RENDERER (CURRENT) USE OF ANTICOAGULANT 07/14/2015 DANDRE WANG FACC, ALI FACP CCDS Ot Z79.899 OTHER HALF-WAY (CURRENT) DRUG THERAPY 07/15/2015 DANDRE WANG FACC, ALI FACP CCDS Ot I48.91 UNSPECIFIED ATRIAL FIBRILLATION 07/15/2015 DANDRE WANG FACC, ALI FACP CCDS Ot Z79.01 OLEO HASHER AND RENDERER (CURRENT) USE OF ANTICOAGULANT 07/15/2015 DANDRE WANG FACC, ALI FACP CCDS Ot Z79.899 OTHER HALF-WAY (CURRENT) DRUG THERAPY 07/15/2015 DANDRE WANG FACC, ALI FACP CCDS Ot I48.91 UNSPECIFIED ATRIAL FIBRILLATION 07/15/2015 DANDRE WANG FACC, ALI FACP CCDS Ot Z79.01 HALF-WAY (CURRENT) USE OF ANTICOAGULANT 07/15/2015 DANDRE WANG FACC, ALI FACP CCDS Ot Z79.899 OTHER OLEO HASHER AND RENDERER (CURRENT) DRUG THERAPY 07/16/2015 DANDRE WANG FACC, ALI FACP CCDS Ot I48.91 UNSPECIFIED ATRIAL FIBRILLATION 07/16/2015 DANDRE WANG FACC, ALI FACP CCDS Ot Z79.01 OLEO HASHER AND RENDERER (CURRENT) USE OF ANTICOAGULANT 07/16/2015 DANDRE WANG FACC, ALI FACP CCDS Ot Z79.899 OTHER HALF-WAY (CURRENT) DRUG THERAPY 07/18/2015 Ot 272.4 HYPERLIPIDEMIA NEC/NOS 07/18/2015 Ot 414.00 CORON ATHEROSCLER NOS TYPE VESSEL, NATIV 07/18/2015 Ot 427.31 ATRIAL FIBRILLATION 07/18/2015 Ot V58.61 ANTICOAGULANTS,LT,CURRENT USE 07/18/2015 Ot V58.69 OTH MED,LT, CURRENT USE 07/19/2015 DANDRE WANG FACC, ALI FACP CCDS Ot I48.91 UNSPECIFIED ATRIAL FIBRILLATION 07/19/2015 DANDRE WANG FACC, ALI FACP CCDS Ot Z79.01 HALF-WAY (CURRENT) USE OF ANTICOAGULANT 07/19/2015 DANDRE WANG FACC, ALI FACP CCDS Ot Z79.899 OTHER HALF-WAY (CURRENT) DRUG THERAPY 07/31/2015 DANDRE WANG FACC, ALI FACP CCDS Ot I48.91 UNSPECIFIED ATRIAL FIBRILLATION 07/31/2015 DANDRE WANG FACC, ALI FACP CCDS Ot Z79.01 HALF-WAY (CURRENT) USE OF ANTICOAGULANT 07/31/2015 DANDRE WANG FACC, ALI FACP CCDS Ot Z79.899 OTHER OLEO HASHER AND RENDERER (CURRENT) DRUG THERAPY 07/31/2015 DANDRE WANG FACC, ALI FACP CCDS Ot I48.91 UNSPECIFIED ATRIAL FIBRILLATION 07/31/2015 DANDRE WANG FACC, ALI FACP CCDS Ot Z79.01 HALF-WAY (CURRENT) USE OF ANTICOAGULANT 07/31/2015 DANDRE WANG FACC, ALI FACP CCDS Ot Z79.899 OTHER HALF-WAY (CURRENT) DRUG THERAPY 08/06/2015 DANDRE WANG FACC, ALI FACP CCDS Ot I48.91 UNSPECIFIED ATRIAL FIBRILLATION 08/06/2015 DANDRE WANG FACC, ALI FACP CCDS Ot Z79.01 OLEO HASHER AND RENDERER (CURRENT) USE OF ANTICOAGULANT 08/06/2015 DANDRE WANG FACC, ALI FACP CCDS Ot Z79.899 OTHER OLEO HASHER AND RENDERER (CURRENT) DRUG THERAPY 08/09/2015 DANDRE WANG FACC, ALI FACP CCDS Ot I48.91 UNSPECIFIED ATRIAL FIBRILLATION 08/09/2015 DANDRE WANG FACC, ALI FACP CCDS Ot Z79.01 HALF-WAY (CURRENT) USE OF ANTICOAGULANT 08/09/2015 DANDRE WANG FACC, ALI FACP CCDS Ot Z79.899 OTHER HALF-WAY (CURRENT) DRUG THERAPY 10/13/2015 DANDRE WANG FACC, ALI FACP CCDS Ot I48.91 UNSPECIFIED ATRIAL FIBRILLATION 10/13/2015 DANDRE WANG FAC, ALI FACP CCDS Ot Z79.01 OLEO HASHER [employer] RENDERER (CURRENT) USE OF ANTICOAGULANT 10/13/2015 DANDRE WANG [facility], ALI FACP CCDS Ot Z79.899 OTHER HALF-WAY (CURRENT) DRUG THERAPY 10/19/2015 DANDRE SALDIVAR, ALI FACP CCDS Ot I48.91 UNSPECIFIED ATRIAL FIBRILLATION 10/19/2015 DANDRE WANG [facility], ALI FACP CCDS Ot Z79.01 HALF-WAY (CURRENT) USE OF ANTICOAGULANT 10/19/2015 DANDRE WANG FACC, ALI FACP CCDS Ot Z79.899 OTHER HALF-WAY (CURRENT) DRUG THERAPY 10/21/2015 BAIMA, ROSENDO L 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 Ot I48.91 UNSPECIFIED ATRIAL FIBRILLATION 10/21/2015 BAIMA, ROSENDO L 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 Ot Z79.01 OLEO HASHER AND RENDERER (CURRENT) USE OF ANTICOAGULANT 10/21/2015 BAIMA, ROSENDO L 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 Ot Z79.899 OTHER OLEO HASHER AND RENDERER (CURRENT) DRUG THERAPY 10/21/2015 BAIMA, ROSENDO L 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 Ot I48.91 UNSPECIFIED ATRIAL FIBRILLATION 10/21/2015 BAIMA, ROSENDO L 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 Ot Z79.01 HALF-WAY (CURRENT) USE OF ANTICOAGULANT 10/21/2015 BAIMA, ROSENDO L 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 Ot Z79.899 OTHER OLEO HASHER AND RENDERER (CURRENT) DRUG THERAPY 12/09/2015 BAIMA, ROSENDO L 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 Ot I48.91 UNSPECIFIED ATRIAL FIBRILLATION 12/09/2015 BAIMA, ROSENDO L 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 Ot Z79.01 HALF-WAY (CURRENT) USE OF ANTICOAGULANT 12/09/2015 BAIMA, ROSENDO L 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 Ot Z79.899 OTHER OLEO HASHER [employer] RENDERER (CURRENT) DRUG THERAPY 12/18/2015 Ot 272.4 HYPERLIPIDEMIA NEC/NOS 12/18/2015 Ot 414.00 CORON ATHEROSCLER NOS TYPE VESSEL, NATIV 12/18/2015 Ot 427.31 ATRIAL FIBRILLATION 12/18/2015 Ot V58.61 ANTICOAGULANTS,LT,CURRENT USE 12/18/2015 Ot V58.69 OTH MED,LT, CURRENT USE 12/30/2015 BELA WHITTAKER MD Ot I48.2 CHRONIC ATRIAL FIBRILLATION 12/31/2015 BELA WHITTAKER MD Ot G62.9 POLYNEUROPATHY, UNSPECIFIED 12/31/2015 BELA WHITTAKER MD Ot I48.91 UNSPECIFIED ATRIAL FIBRILLATION 12/31/2015 BELA WHITTAKER MD Ot R94.6 ABNORMAL RESULTS OF THYROID FUNCTION MAR[place] 01/18/2016 BAIMAROSENDO L 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 Ot I48.91 UNSPECIFIED ATRIAL FIBRILLATION 01/18/2016 CINTIAMAROSENDO L 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 Ot Z79.01 HALF-WAY (CURRENT) USE OF ANTICOAGULANT 01/18/2016 ROSENDO HATCH L 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 Ot Z79.899 OTHER OLEO HASHER AND RENDERER (CURRENT) DRUG THERAPY 01/20/2016 BELA WHITTAKER MD, Ot G62.9 POLYNEUROPATHY, UNSPECIFIED 01/20/2016 BELA WHITTAKER MD Ot I48.91 UNSPECIFIED ATRIAL FIBRILLATION 01/20/2016 BELA WHITTAKER MD Ot R94.6 ABNORMAL RESULTS OF THYROID FUNCTION MAR[place] 01/24/2016 DANDRE WANG FACC, MICHELLE FACP CCDS Ot I48.91 UNSPECIFIED ATRIAL FIBRILLATION 01/24/2016 MICHELLE AMOS MD, FACC FACP CCDS Ot Z79.01 HALF-WAY (CURRENT) USE OF ANTICOAGULANT 01/24/2016 DANDRE WANG FACC ALI FACP CCDS Ot Z79.899 OTHER HALF-WAY (CURRENT) DRUG THERAPY 01/24/2016 DANDRE WANG FACC, ALI FACP CCDS Ot I48.91 UNSPECIFIED ATRIAL FIBRILLATION 01/24/2016 MICHELLE AMOS MD, FACC FACP CCDS Ot Z79.01 OLEO HASHER AND RENDERER (CURRENT) USE OF ANTICOAGULANT 01/24/2016 DANDRE WANG FACC, ALI FACP CCDS Ot Z79.899 OTHER HALF-WAY (CURRENT) DRUG THERAPY 01/25/2016 DANDRE WANG FACC, ALI FACP CCDS Ot I48.91 UNSPECIFIED ATRIAL FIBRILLATION 01/25/2016 DANDRE WANG FACC, ALI FACP CCDS Ot Z79.01 HALF-WAY (CURRENT) USE OF ANTICOAGULANT 01/25/2016 DANDRE WANG FACC, ALI FACP CCDS Ot Z79.899 OTHER HALF-WAY (CURRENT) DRUG THERAPY 03/16/2016 MICHELLE AMOS MD, FACC FACP CCDS Ot I48.91 UNSPECIFIED ATRIAL FIBRILLATION 03/16/2016 DANDRE MD FACC, ALI FACP CCDS Ot Z79.01 HALF-WAY (CURRENT) USE OF ANTICOAGULANT 03/16/2016 DANDRE WANG FACC, ALI FACP CCDS Ot Z79.899 OTHER HALF-WAY (CURRENT) DRUG THERAPY 04/17/2016 BELA WHITTAKER MD Ot M50.322 OTHER CERVICAL 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 04/23/2016 DANDRE WANG FACC, ALI FACP CCDS Ot I48.91 UNSPECIFIED ATRIAL FIBRILLATION 04/23/2016 DANDRE WANG FACC, ALI FACP CCDS Ot Z79.01 OLEO HASHER AND RENDERER (CURRENT) USE OF ANTICOAGULANT 04/23/2016 DANDRE WANG FACC, ALI FACP CCDS Ot Z79.899 OTHER HALF-WAY (CURRENT) DRUG THERAPY 04/24/2016 DANDRE WANG FACC, ALI FACP CCDS Ot I48.91 UNSPECIFIED ATRIAL FIBRILLATION 04/24/2016 DANDRE WANG FACC, ALI FACP CCDS Ot Z79.01 OLEO HASHER AND RENDERER (CURRENT) USE OF ANTICOAGULANT 04/24/2016 DANDRE WANG FACC, ALI FACP CCDS Ot Z79.899 OTHER OLEO HASHER AND RENDERER (CURRENT) DRUG THERAPY 04/29/2016 DANDRE WANG FACC, ALI FACP CCDS Ot I48.91 UNSPECIFIED ATRIAL FIBRILLATION 04/29/2016 DANDRE WANG FACC, ALI FACP CCDS Ot Z79.01 OLEO HASHER AND RENDERER (CURRENT) USE OF ANTICOAGULANT 04/29/2016 DANDRE WANG FACC, ALI FACP CCDS Ot Z79.899 OTHER OLEO HASHER AND RENDERER (CURRENT) DRUG THERAPY 05/11/2016 BELA WHITTAKER MD Ot M50.322 OTHER CERVICAL 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 05/30/2016 BELA WHITTAKER MD Ot M50.322 OTHER CERVICAL 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 07/04/2016 BELA WHITTAKER MD Ot M50.322 OTHER CERVICAL 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 07/07/2016 BELA WHITTAKER MD Ot E78.5 HYPERLIPIDEMIA, UNSPECIFIED 07/07/2016 BELA WHITTAKER MD Ot I48.0 PAROXYSMAL ATRIAL FIBRILLATION 07/09/2016 BELA WHITTAKER MD Ot M50.322 OTHER CERVICAL 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 07/13/2016 SONYA PATINO MD Ot M50.322 OTHER CERVICAL 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 07/31/2016 BELA WHITTAKER MD Ot E78.5 HYPERLIPIDEMIA, UNSPECIFIED 07/31/2016 REMEDIOS WANG, BELA Howard Ot I48.0 PAROXYSMAL ATRIAL FIBRILLATION 08/29/2016 CAREY WANG, SONYA Rizzo Ot M50.322 OTHER CERVICAL 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 12/14/2016 DANDRE WANG FACC, ALI FACP CCDS Ot E78.4 OTHER HYPERLIPIDEMIA 12/14/2016 DANDRE WANG FACC, ALI FACP CCDS Ot E78.4 OTHER HYPERLIPIDEMIA 12/14/2016 DANDRE WANG FACC, ALI FACP CCDS Ot I25.10 ATHSCL HEART DISEASE OF [place] CORONARY 12/29/2016 DANDRE WANG FACC, ALI FACP CCDS Ot E78.4 OTHER HYPERLIPIDEMIA 12/29/2016 DANDRE WANG FACC, ALI FACP CCDS Ot I25.10 ATHSCL HEART DISEASE OF [place] CORONARY 01/03/2017 DANDRE WANG FACInés, ALI FACP CCDS Ot E78.4 OTHER HYPERLIPIDEMIA 01/03/2017 DANDRE WANG FACC, ALI FACP CCDS Ot I25.10 ATHSCL HEART DISEASE OF [place] CORONARY 05/14/2017 Ot 427.31 ATRIAL FIBRILLATION 05/14/2017 Ot V58.69 OTH MED,LT, CURRENT USE 05/14/2017 BELA WHITTAKER MD Ot 272.4 HYPERLIPIDEMIA NEC/NOS 05/14/2017 BELA WHITTAKER MD Ot 427.31 ATRIAL FIBRILLATION 05/14/2017 BELA WHITTAKER MD Ot 244.9 HYPOTHYROIDISM NOS 05/14/2017 BELA WHITTAKER MD Ot 272.0 PURE HYPERCHOLESTEROLEM 05/14/2017 BELA WHITTAKER MD Ot 427.31 ATRIAL FIBRILLATION 05/14/2017 BELA WHITTAKER MD Ot 356.9 IDIO PERIPH NEURPTHY NOS 05/14/2017 EAGLE AYALAP Ot 723.0 CERVICAL SPINAL STENOSIS 05/14/2017 EAGLE AYALA 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 Ot V45.4 ARTHRODESIS STATUS 05/14/2017 BELA WHITTAKER MD Ot 414.00 CORON ATHEROSCLER NOS TYPE VESSEL, NATIV 05/14/2017 BELA WHITTAKER MD Ot 427.31 ATRIAL FIBRILLATION 05/14/2017 BELA WHITTAKER MD Ot V72.84 EXAM PRE-OPERATIVE NOS 05/14/2017 Ot 427.31 ATRIAL FIBRILLATION 05/14/2017 Ot V58.61 ANTICOAGULANTS,LT,CURRENT USE 05/14/2017 Ot V58.83 ENCOUNTER FOR THERAPEUTIC DRUG MONITORIN 05/14/2017 DANDRE WANG FACC, ALI FACP CCDS Ot 427.31 ATRIAL FIBRILLATION 05/14/2017 DANDRE SALDIVARC, ALI FACP CCDS Ot V58.61 ANTICOAGULANTS,LT,CURRENT USE 05/14/2017 DANDRE WANG FACC, ALI FACP CCDS Ot V58.69 OTH MED,LT,CURRENT USE 05/14/2017 DANDRE WANG FACC, ALI FACP CCDS Ot 272.4 HYPERLIPIDEMIA NEC/NOS 05/14/2017 DANDRE WANG FACC, ALI FACP CCDS Ot 414.00 CORON ATHEROSCLER NOS TYPE VESSEL, NATIV 05/14/2017 DANDRE WANG FACC, ALI FACP CCDS Ot 427.32 ATRIAL FLUTTER 05/14/2017 DANDRE WANG FACC, ALI FACP CCDS Ot 433.10 CAROTID ARTERY OCCLUSION W O CEREBRAL IN 05/14/2017 DANDRE WANG FACC, ALI FACP CCDS Ot 443.9 PERIPH VASCULAR DIS NOS 05/14/2017 DANDRE WANG FACC, ALI FACP CCDS Ot 585.9 CHRONIC KIDNEY DISEASE, UNSPECIFIED 05/14/2017 DANDRE WANG FACC, ALI FACP CCDS Ot V58.61 ANTICOAGULANTS,LT,CURRENT USE 05/14/2017 DANDRE SALDIVARC, ALI FACP CCDS Ot 272.4 HYPERLIPIDEMIA NEC/NOS 05/14/2017 DANDRE WANG FACC, ALI FACP CCDS Ot 414.00 CORON ATHEROSCLER NOS TYPE VESSEL, NATIV 05/14/2017 DANDRE WANG FACC, ALI FACP CCDS Ot 427.32 ATRIAL FLUTTER 05/14/2017 DANDRE WANG FACC, ALI FACP CCDS Ot 443.9 PERIPH VASCULAR DIS NOS 05/14/2017 DANDRE WANG FACC, ALI FACP CCDS Ot 585.9 CHRONIC KIDNEY DISEASE, UNSPECIFIED 05/14/2017 DANDRE WANG FACC, ALI FACP CCDS Ot V58.61 ANTICOAGULANTS,LT,CURRENT USE 05/14/2017 BELA WHITTAKER MD Ot 414.00 CORON ATHEROSCLER NOS TYPE VESSEL, NATIV 05/14/2017 BELA WHITTAKER MD Ot 427.31 ATRIAL FIBRILLATION 05/14/2017 BELA WHITTAKER MD Ot E03.9 HYPOTHYROIDISM, UNSPECIFIED 05/14/2017 BELA WHITTAKER MD Ot E78.5 HYPERLIPIDEMIA, UNSPECIFIED 05/14/2017 BELA WHITTAKER MD Ot I10 ESSENTIAL (PRIMARY) HYPERTENSION 05/14/2017 BELA WHITTAKER MD Ot I25.10 ATHSCL HEART DISEASE OF [place] CORONARY 05/14/2017 BELA WHITTAKER MD Ot G62.9 POLYNEUROPATHY, UNSPECIFIED 05/14/2017 BELA WHITTAKER MD Ot I48.91 UNSPECIFIED ATRIAL FIBRILLATION 05/14/2017 BELA WHITTAKER MD Ot R94.6 ABNORMAL RESULTS OF THYROID FUNCTION [place] 05/14/2017 DANDRE WANG FACC, ALI FACP CCDS Ot I48.91 UNSPECIFIED ATRIAL FIBRILLATION 05/14/2017 DANDRE WANG FACC, ALI FACP CCDS Ot Z79.01 HALF-WAY (CURRENT) USE OF ANTICOAGULANT 05/14/2017 DANDRE WANG FACC, ALI FACP CCDS Ot Z79.899 OTHER OLEO HASHER AND RENDERER (CURRENT) DRUG THERAPY 05/14/2017 BELA WHITTAKER MD Ot E78.5 HYPERLIPIDEMIA, UNSPECIFIED 05/14/2017 BELA WHITTAKER MD Ot I48.0 PAROXYSMAL ATRIAL FIBRILLATION 05/14/2017 DANDRE WANG FACC, ALI FACP CCDS Ot E78.4 OTHER HYPERLIPIDEMIA 05/14/2017 DANDRE WANG FACC, ALI FACP CCDS Ot I25.10 ATHSCL HEART DISEASE OF [place] CORONARY 06/08/2017 EAGLE AYALA 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 Ot M50.322 OTHER CERVICAL 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 Results Test Result Range PT panel in platelet poor plasma by coagulation assay - 10/27/15 05:45 Prothrombin time (PT) in platelet poor plasma by coagulation assay 23.3 s 12.2-14.7 INR in platelet poor plasma or blood by coagulation assay 2.1 0.8-1.4 PT panel in platelet poor plasma by coagulation assay - 11/05/15 06:13 Prothrombin time (PT) in platelet poor plasma by coagulation assay 24.0 s 12.2-14.7 INR in platelet poor plasma or blood by coagulation assay 2.2 0.8-1.4 PT panel in platelet poor plasma by coagulation assay - 11/19/15 04:54 Prothrombin time (PT) in platelet poor plasma by coagulation assay 23.9 s 12.2-14.7 INR in platelet poor plasma or blood by coagulation assay 2.2 0.8-1.4 PT panel in platelet poor plasma by coagulation assay - 12/17/15 05:39 Prothrombin time (PT) in platelet poor plasma by coagulation assay 22.6 s 12.2-14.7 INR in platelet poor plasma or blood by coagulation assay 2.0 0.8-1.4 Complete blood count (CBC) with automated white blood cell (WBC) differential - 12/30/15 05:28 Blood leukocytes automated count (number/volume) 7.1 10*3/uL 4.3-11.0 Blood erythrocytes automated count (number/volume) 4.75 10*6/uL 4.35-5.85 Venous blood hemoglobin measurement (mass/volume) 13.8 g/dL 13.3-17.7 Blood hematocrit (volume fraction) 42 % 40-54 Automated erythrocyte mean corpuscular volume 88 [foz_us] 80-99 Automated erythrocyte mean corpuscular hemoglobin (mass per erythrocyte) 29 pg 25-34 Automated erythrocyte mean corpuscular hemoglobin concentration measurement ( mass/volume) 33 g/dL 32-36 Automated erythrocyte distribution width ratio 14.9 % 10.0-14.5 Automated blood platelet count (count/volume) 221 10*3/uL 130-400 Automated blood platelet mean volume measurement 10.1 [foz_us] 7.4-10.4 Automated blood neutrophils/100 leukocytes 58 % 42-75 Automated blood lymphocytes/100 leukocytes 28 % 12-44 Blood monocytes/100 leukocytes 8 % 0-12 Automated blood eosinophils/100 leukocytes 5 % 0-10 Automated blood basophils/100 leukocytes 1 % 0-10 Blood neutrophils automated count (number/volume) 4.1 10*3 1.8-7.8 Blood lymphocytes automated count (number/volume) 2.0 10*3 1.0-4.0 Blood monocytes automated count (number/volume) 0.5 10*3 0.0-1.0 Automated eosinophil count 0.4 10*3/uL 0.0-0.3 Automated blood basophil count (count/volume) 0.1 10*3/uL 0.0-0.1 PT panel in platelet poor plasma by coagulation assay - 12/30/15 05:28 Prothrombin time (PT) in platelet poor plasma by coagulation assay 23.2 s 12.2-14.7 INR in platelet poor plasma or blood by coagulation assay 2.1 0.8-1.4 Comprehensive metabolic panel - 12/30/15 05:28 Serum or plasma sodium measurement (moles/volume) 141 mmol/L 135-145 Serum or plasma potassium measurement (moles/volume) 4.2 mmol/L 3.6-5.0 Serum or plasma chloride measurement (moles/volume) 108 mmol/L 98-107 Carbon dioxide 24 mmol/L 21-32 Serum or plasma anion gap determination (moles/volume) 9 mmol/L 5-14 Serum or plasma urea nitrogen measurement (mass/volume) 23 mg/dL 7-18 Serum or plasma creatinine measurement (mass/volume) 1.15 mg/dL 0.60-1.30 Serum or plasma urea nitrogen/creatinine mass ratio 20 NRG Serum or plasma creatinine measurement with calculation of estimated glomerular filtration rate > NRG Serum or plasma glucose measurement (mass/volume) 100 mg/dL 70-105 Serum or plasma calcium measurement (mass/volume) 8.8 mg/dL 8.5-10.1 Serum or plasma total bilirubin measurement (mass/volume) 0.3 mg/dL 0.1-1.0 Serum or plasma alkaline phosphatase measurement (enzymatic activity/volume) 85 U/L 40-136 Serum or plasma aspartate aminotransferase measurement (enzymatic activity/ volume) 13 U/L 5-34 Serum or plasma alanine aminotransferase measurement (enzymatic activity/volume ) 16 U/L 0-55 Serum or plasma protein measurement (mass/volume) 6.2 g/dL 6.4-8.2 Serum or plasma albumin measurement (mass/volume) 3.8 g/dL 3.2-4.5 THYROID STIMULATING HORMONE - 12/30/15 05:28 THYROID STIMULATING HORMONE 3.87 u[iU]/mL 0.35-4.94 Cyanocobalamin measurement - 12/30/15 05:28 Vitamin B12 1681 pg/mL 200-1000 PT panel in platelet poor plasma by coagulation assay - 02/02/16 05:35 Prothrombin time (PT) in platelet poor plasma by coagulation assay 28.3 s 12.2-14.7 INR in platelet poor plasma or blood by coagulation assay 2.7 0.8-1.4 PT panel in platelet poor plasma by coagulation assay - 02/21/16 05:20 Prothrombin time (PT) in platelet poor plasma by coagulation assay 23.5 s 12.2-14.7 INR in platelet poor plasma or blood by coagulation assay 2.1 0.8-1.4 Whole blood basic metabolic panel - 07/06/16 06:45 Serum or plasma sodium measurement (moles/volume) 141 mmol/L 135-145 Serum or plasma potassium measurement (moles/volume) 4.1 mmol/L 3.6-5.0 Serum or plasma chloride measurement (moles/volume) 107 mmol/L 98-107 Carbon dioxide 23 mmol/L 21-32 Serum or plasma anion gap determination (moles/volume) 11 mmol/L 5-14 Serum or plasma urea nitrogen measurement (mass/volume) 22 mg/dL 7-18 Serum or plasma creatinine measurement (mass/volume) 1.20 mg/dL 0.60-1.30 Serum or plasma urea nitrogen/creatinine mass ratio 18 NRG Serum or plasma creatinine measurement with calculation of estimated glomerular filtration rate 58 NRG Serum or plasma glucose measurement (mass/volume) 100 mg/dL 70-105 Serum or plasma calcium measurement (mass/volume) 9.2 mg/dL 8.5-10.1 Lipid 1996 panel - 07/06/16 06:45 Serum or plasma triglyceride measurement (mass/volume) 80 mg/dL <150 Serum or plasma cholesterol measurement (mass/volume) 124 mg/dL < 200 Serum or plasma cholesterol in HDL measurement (mass/volume) 38 mg/ dL 40-60 Cholesterol in LDL [mass/volume] in serum or plasma by direct assay 70 mg/dL 1-129 Serum or plasma cholesterol in VLDL measurement (mass/volume) 16 mg/ dL 5-40 Comprehensive metabolic panel - 12/14/16 05:20 Serum or plasma sodium measurement (moles/volume) 142 mmol/L 135-145 Serum or plasma potassium measurement (moles/volume) 4.0 mmol/L 3.6-5.0 Serum or plasma chloride measurement (moles/volume) 108 mmol/L 98-107 Carbon dioxide 22 mmol/L 21-32 Serum or plasma anion gap determination (moles/volume) 12 mmol/L 5-14 Serum or plasma urea nitrogen measurement (mass/volume) 16 mg/dL 7-18 Serum or plasma creatinine measurement (mass/volume) 1.16 mg/dL 0.60-1.30 Serum or plasma urea nitrogen/creatinine mass ratio 14 NRG Serum or plasma creatinine measurement with calculation of estimated glomerular filtration rate 60 NRG Serum or plasma glucose measurement (mass/volume) 89 mg/dL 70-105 Serum or plasma calcium measurement (mass/volume) 9.4 mg/dL 8.5-10.1 Serum or plasma total bilirubin measurement (mass/volume) 0.4 mg/dL 0.1-1.0 Serum or plasma alkaline phosphatase measurement (enzymatic activity/volume) 93 U/L 40-136 Serum or plasma aspartate aminotransferase measurement (enzymatic activity/ volume) 10 U/L 5-34 Serum or plasma alanine aminotransferase measurement (enzymatic activity/volume ) 10 U/L 0-55 Serum or plasma protein measurement (mass/volume) 6.9 g/dL 6.4-8.2 Serum or plasma albumin measurement (mass/volume) 3.9 g/dL 3.2-4.5 Lipid 1996 panel - 12/14/16 05:20 Serum or plasma triglyceride measurement (mass/volume) 79 mg/dL <150 Serum or plasma cholesterol measurement (mass/volume) 127 mg/dL < 200 Serum or plasma cholesterol in HDL measurement (mass/volume) 43 mg/ dL 40-60 Cholesterol in LDL [mass/volume] in serum or plasma by direct assay 66 mg/dL 1-129 Serum or plasma cholesterol in VLDL measurement (mass/volume) 16 mg/ dL 5-40 Encounters ACCT No. Visit Date/Time Discharge Status Pt. 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 TRIGGER FINGER [id number] 07/04/2016 10:19:00 07/09/2016 00:01:00 DIS Outpatient BELA WHITTAKER MD [facility] REHAB DDD C SPINE, DJD B HIPS ;L 4TH TRIGGER FINGER [id number] 07/06/2016 06:28:00 07/06/2016 23:59:59 CLS Outpatient BELA WHITTAKER MD [facility] LAB HYPERLIPIDEMIA,A-FIB [id number] 04/24/2016 00:08:00 04/24/2016 23:59:59 CLS Preadmit DANDRE WANG FACC, ALI FACP CCDS [facility] LAB COUMADIN [place], AFIB [id number] 02/21/2016 05:10:00 04/23/2016 00:01:00 DIS Outpatient DANDRE WANG FACC, ALI FACP CCDS [facility] LAB [place]MADIN [place], AFIB [id number] 12/30/2015 05:14:00 12/30/2015 23:59:59 CLS Outpatient BELA WHITTAKER MD [facility] LAB PERIPHERAL NEUROPATHY, A FIB [id number] 12/17/2015 05:37:00 12/17/2015 23:59:59 CLS Outpatient ROSENDO HATCH 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 [facility] LAB COUMADIN [place],AFIB [id number] 10/01/2015 05:06:00 10/13/2015 00:01:00 DIS Outpatient DANDRE WANG FACC, ALI FACP CCDS [facility] LAB COUMADIN [place], AFIB [id number] 06/23/2015 05:35:00 07/14/2015 00:01:00 DIS Outpatient DANDRE WANG FACC, ALI FACP CCDS [facility] LAB COUMADIN [place], AFIB [id number] 06/23/2015 05:19:00 06/23/2015 23:59:59 CLS Outpatient BELA WHITTAKER MD [facility] LAB ASCAD,HYPOTHROIDISM,HTN, HYPERLIPIDEMIA [id number] 03/25/2015 04:52:00 03/31/2015 00:01:00 DIS Outpatient DANDRE WANG FACC, ALI FACP CCDS [facility] LAB COUMADIN [place], AFIB [id number] 02/18/2015 13:45:00 02/18/2015 14:44:00 DIS Outpatient EAGLE AYALA 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 [facility] REHAB C SPINE DDD [id number] 12/16/2014 14:30:00 12/16/2014 00:01:00 DIS Outpatient EAGLE AYALA 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 [facility] REHAB C SPINE DDD [id number] 12/08/2014 05:28:00 12/16/2014 00:01:00 DIS Outpatient DANDRE WANG FACC, ALI FACP CCDS [facility] LAB COUMADIN [place], AFIB [id number] 10/02/2014 05:52:00 10/13/2014 00:01:00 DIS Outpatient DANDRE WANG FACC, ALI FACP CCDS [facility] LAB COUMADIN [place], AFIB [id number] 09/07/2014 11:51:00 09/07/2014 23:59:59 CLS Outpatient DANDRE WANG FACC, ALI FACP CCDS [facility] CARD AFIB [id number] 08/24/2014 11:31:00 08/24/2014 23:59:59 CLS Outpatient BELA WHITTAKER MD [facility] LAB AFIB [id number] 08/05/2014 10:42:00 08/05/2014 23:59:59 CLS Outpatient DANDRE WANG FACC, ALI FACP CCDS [facility] RAD PAD [id number] 07/29/2014 00:09:00 07/29/2014 23:59:59 CLS Preadmit DANDRE WANG FACC, ALI FACP CCDS [facility] LAB AFIB,ASCLAD [id number] 05/27/2014 04:55:00 07/28/2014 00:01:00 DIS Outpatient DANDRE WANG FACC, ALI FACP CCDS [facility] LAB AFIB,ASCLAD [id number] 04/15/2014 00:33:00 04/15/2014 23:59:59 CLS Preadmit EAGLE AYALA 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 [facility] REHAB [id number] 04/08/2014 10:38:00 04/14/2014 00:01:00 DIS Outpatient EAGLE AYALA 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 [facility] REHAB DDD C-SPINE WITH L UE BICEPS TENDONITIS [id number] 04/01/2014 05:33:00 04/01/2014 23:59:59 CLS Outpatient MICHELLE AMOS MD, FACC, FACP CCDS [facility] LAB [place]MADIN [place], AFIB [id number] 02/24/2014 08:34:00 02/24/2014 23:59:59 CLS Outpatient BELA WHITTAKER MD [facility] SDC SCREENING [id number] 02/23/2014 09:01:00 02/23/2014 23:59:59 CLS Outpatient BELA WHITTAKER MD [facility] PREOP SCREENING [id number] 02/10/2014 05:17:00 02/10/2014 23:59:59 CLS Outpatient BELA WHITTAKER MD [facility] LAB AFIB, ASCLAD [id number] 12/11/2013 05:30:00 01/07/2014 00:01:00 DIS Outpatient MICHELLE AMOS MD, FACC, FACP CCDS [facility] LAB [place]IN [place], AFIB [id number] 12/30/2013 14:59:00 12/30/2013 23:59:59 CLS Outpatient EAGLE AYALA [facility] RAD HNP C SPINE W/LUE RADICULOPATHY [id number] 09/11/2013 05:36:00 10/01/2013 00:01:00 DIS Outpatient MICHELLE AMOS MD, FACC, FACP CCDS [facility] LAB [place]IN [place], AFIB [id number] 08/14/2013 05:33:00 08/14/2013 23:59:59 CLS Outpatient BELA WHITTAKER MD [facility] LAB PAIN THUMB [id number] 05/22/2013 05:36:00 07/02/2013 00:01:00 DIS Outpatient DANDRE WANG FACInés, MICHELLE DE SANTIAGO CCDS [facility] LAB [place]IN [place], AFIB [id number] 03/06/2013 05:35:00 04/02/2013 00:01:00 DIS Outpatient DANDRE WANG FACC, MICHELLE DE SANTIAGO CCDS [facility] LAB [place]ADIN [place], AFIB [id number] 02/07/2013 05:30:00 02/07/2013 23:59:59 CLS Outpatient BELA WHITTAKER MD [facility] LAB A-FIB [id number] 12/26/2012 07:28:00 01/02/2013 08:45:00 DIS Outpatient JAMIN HEATON MD [facility] LAB A-FIB [id number] 11/13/2012 05:36:00 12/25/2012 00:01:00 DIS Outpatient ROSENDO HATCH [facility] LAB COUMADIN [place],AFIB [id number] 12/21/2012 11:25:00 12/22/2012 13:57:00 DIS Inpatient BELA WHITTAKER MD [facility] ICU A FIB WITH RVR [id number] 10/16/2012 05:49:00 10/16/2012 23:59:59 CLS Outpatient BELA WHITTAKER MD [facility] LAB A-FIB,HYPERLIPIDEMIA, THYROID REPLACEMENT THERAPY [id number] 09/05/2012 05:40:00 09/10/2012 00:01:00 DIS Outpatient ROSENDO HATCH [facility] LAB [place]MADIN [place],AFIB [id number] 04/29/2014 05:06:00 Document Registration [id number] 02/09/2014 14:26:00 Document Registration [id number] 02/09/2014 14:26:00 Document Registration [id number] 05/15/2012 05:33:00 Document Registration [id number] 03/13/2012 11:50:00 Document Registration [id number] 02/15/2012 05:37:00 Document Registration [id number] 02/15/2012 05:31:00 Document Registration [id number] 11/02/2011 06:20:00 Document Registration [id number] 08/24/2011 05:39:00 Document Registration [id number] 08/03/2011 05:33:00 Document Registration [id number] 06/01/2011 06:07:00 Document Registration [id number] 04/20/2011 05:34:00 Document Registration [id number] 03/02/2011 05:37:00 Document Registration [id number] 01/05/2011 05:39:00 Document Registration [id number] 01/05/2011 05:30:00 Document Registration [id number] 10/31/2010 05:32:00 Document Registration [id number] 10/24/2010 11:20:00 Document Registration [id number] 10/13/2010 00:00:00 Document Registration [id number] 09/30/2010 05:31:00 Document Registration [id number] 08/09/2010 05:35:00 Document Registration [id number] 07/11/2010 05:30:00 Document Registration [id number] 06/16/2010 06:05:00 Document Registration [id number] 05/23/2010 15:49:00 Document Registration [id number] 05/11/2010 21:43:00 Document Registration [id number] 04/21/2010 09:48:00 Document Registration [id number] 04/08/2010 12:30:00 Document Registration [id number] 03/23/2010 05:36:00 Document Registration [id number] 03/10/2010 05:36:00 Document Registration [id number] 03/09/2010 10:02:00 Document Registration [id number] 12/09/2009 05:44:00 Document Registration [id number] 09/18/2009 16:22:00 Document Registration [id number] 08/26/2009 05:36:00 Document Registration [id number] 06/10/2009 05:37:00 Document Registration [id number] 02/17/2009 05:35:00 Document Registration [id number] 01/18/2009 06:06:00 Document Registration [id number] 11/17/2008 05:41:00 Document Registration [id number] 08/19/2008 05:43:00 Document Registration
[2017-08-17 14:18] LABS: BASOPHILS # (AUTO) 0.1 10^3/uL (0.0-0.1); BASOPHILS % (AUTO) 1 % (0-10); EOSINOPHILS # (AUTO) 0.5 10^3/uL (0.0-0.3); EOSINOPHILS % (AUTO) 6 % (0-10); HEMATOCRIT 40 % (40-54); HEMOGLOBIN 13.3 G/DL (13.3-17.7); LYMPHOCYTES # (AUTO) 1.6 X 10^3 (1.0-4.0); LYMPHOCYTES % (AUTO) 19 % (12-44); MEAN CORPUSCULAR HEMOGLOBIN 29 PG (25-34); MEAN CORPUSCULAR HGB CONC 33 G/DL (32-36); MEAN CORPUSCULAR VOLUME 88 FL (80-99); MEAN PLATELET VOLUME 9.8 FL (7.4-10.4); MONOCYTES # (AUTO) 0.6 X 10^3 (0.0-1.0); MONOCYTES % (AUTO) 8 % (0-12); NEUTROPHILS # (AUTO) 5.6 X 10^3 (1.8-7.8); NEUTROPHILS % (AUTO) 67 % (42-75); PLATELET COUNT 267 10^3/uL (130-400); RED BLOOD COUNT 4.58 10^6/uL (4.35-5.85); RED CELL DISTRIBUTION WIDTH 14.3 % (10.0-14.5); WHITE BLOOD COUNT 8.3 10^3/uL (4.3-11.0)
--- NOTE | 2017-08-17 14:47 | Diagnostic Imaging Report ---
PATIENT HISTORY: Sore throat, head cold. TECHNIQUE: Single frontal view of the chest. COMPARISON: 12/21/2012 FINDINGS: Lung volumes are normal. No focal consolidation is seen. There is no pleural effusion or pneumothorax. The cardiac silhouette is stable in size. 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 There is aortic atherosclerosis. No acute osseous abnormality is seen. IMPRESSION: No acute pulmonary abnormality. Dictated by: Dictated on workstation # [id number]
--- NOTE | 2017-08-17 15:11 | ED General ---
General Chief Complaint: Cough/Cold/Flu Symptoms Stated Complaint: HEAD COLD,SORE THROAT,COUGHING Nursing Triage Note: PATIENT STATES HE HAS HAD COUGH, COLD, CONGESTION, SORE THROAT X 2 DAYS. Nursing Sepsis Screen: No Definite Risk Source of Information: Patient Exam Limitations: No Limitations History of Present Illness Date Seen by Provider: Aug 17, 2017 Time Seen by Provider: 14:40 Initial Comments The patient is an 87-year-old white male known to me for a goodly number of years. He reports that over the last 2 days he is experienced head congestion coughing and a sore throat. He was concerned he might be coming down with pneumonia. There has been no fever Timing/Duration: 2-3 Days Associated Systoms: Cough Allergies and Home Medications Allergies Coded Allergies: No Known Drug Allergies (Verified , 07/17/07) Home Medications Aspirin 81 Mg Chew, 81 MG PO DAILY, (Reported) Cholecalciferol 5,000 Unit Tablet, 5,000 UNIT PO DAILY, (Reported) Diltiazem Hcl 240 Mg Cap.sr.24h, 1 EACH PO DAILY, (Reported) Levothyroxine Sodium 50 Mcg Tablet, 75 MCG PO DAILY, (Reported) Simvastatin 40 Mg Tablet, 40 MG PO HS, (Reported) Venlafaxine HCl 75 Mg Cap.er.24h, 75 MG PO DAILY, (Reported) Warfarin Sod 10 Mg Tab, 10 MG PO DAILY, (Reported) [Cascara Sograda] , 450 MG PO DAILY Prescribed by: JOSE CHÁVEZ on 02/24/14 0950 Patient Home Medication List Home Medication List Reviewed: Yes Review of Systems Constitutional: see HPI EENTM: nose congestion, throat pain Respiratory: cough Cardiovascular: no symptoms reported Gastrointestinal: no symptoms reported Genitourinary: no symptoms reported Musculoskeletal: no symptoms reported Skin: no symptoms reported Psychiatric/Neurological: No Symptoms Reported Hematologic/Lymphatic: No Symptoms Reported Immunological/Allergic: no symptoms reported Past Ddoclxd-Unxnlw-Ishjrk Hx Patient Social History Alcohol Use: Denies Use Recreational Drug Use: No Smoking Status: Never a Smoker 2nd Hand Smoke Exposure: No Recent Foreign Travel: No Contact w/Someone Who Travel: No Recent Infectious Disease Expo: No Recent Hopitalizations: Yes Physical Abuse: No Sexual Abuse: No Immunizations Up To Date Date of Pneumonia Vaccine: Dec 17, 2013 Date of Influenza Vaccine: Dec 17, 2013 Past Medical History Surgeries: Yes (CABG 2005, PROSTATE 1979, CATARACTS 2000) Respiratory: No Cardiac: Yes (A-FIB, SICK SINUS SYNDROME) Neurological: No Reproductive Disorders: No Gastrointestinal: No Musculoskeletal: No Endocrine: Yes (THYROID) Psychosocial: No Nursing Suicide Risk Score: 0 Integumentary: No Blood Disorders: No Family Medical History No Pertinent Family Hx Physical Exam Vital Signs Vital Signs - First Documented 08/17/17 13:48 Temp 96.2 Pulse 76 Resp 18 B/P (MAP) 122/70 (87) Pulse Ox 94 Capillary Refill : Less Than 3 Seconds General Appearance: No Apparent Distress Eyes: Bilateral Eye Normal Inspection HEENT: Pharyngeal Erythema, TM Abnormal (R) (mild) Neck: Full Range of Motion, Normal Inspection, Non Tender, Supple, Carotid Bruit Respiratory: Chest Non Tender, Lungs Clear, Normal Breath Sounds, No Accessory Muscle Use, No Respiratory Distress Cardiovascular: Regular Rate, Rhythm, No Edema, No Gallop, No JVD, No Murmur, Normal Peripheral Pulses Gastrointestinal: Normal Bowel Sounds, No Organomegaly, No Pulsatile Mass, Non Tender, Soft Extremity: Normal Capillary Refill, Normal Inspection, Normal Range of Motion, Non Tender, No Calf Tenderness, No Pedal Edema Neurologic/Psychiatric: Alert, Oriented x3, No Motor/Sensory Deficits, Normal Mood/Affect Skin: Normal Color, Warm/Dry Lymphatic: No Adenopathy Progress/Results/Core Measures Suspected Sepsis Recent Fever Within 48 Hours: No Infection Criteria Present: Suspected New Infection New/Unexplained Altered Menta: No Sepsis Screen: No Definite Risk SIRS Temperature:96.2 Pulse: 76 Respiratory Rate: 18 Laboratory Tests 08/17/17 14:10: White Blood Count 8.3 Blood Pressure 122 /70 Mean: 87 Laboratory Tests 08/17/17 14:10: Platelet Count 267 Results/Orders Lab Results Laboratory Tests Test 08/17/17 14:00 08/17/17 14:10 Range/Units Group A Streptococcus Screen NEGATIVE NEGATIVE White Blood Count 8.3 4.3-11.0 10^3/uL Red Blood Count 4.58 4.35-5.85 10^6/uL Hemoglobin 13.3 13.3-17.7 G/DL Hematocrit 40 40-54 % Mean Corpuscular Volume 88 80-99 FL Mean Corpuscular Hemoglobin 29 25-34 PG Mean Corpuscular Hemoglobin Concent 33 32-36 G/DL Red Cell Distribution Width 14.3 10.0-14.5 % Platelet Count 267 130-400 10^3/uL Mean Platelet Volume 9.8 7.4-10.4 FL Neutrophils (%) (Auto) 67 42-75 % Lymphocytes (%) (Auto) 19 12-44 % Monocytes (%) (Auto) 8 0-12 % Eosinophils (%) (Auto) 6 0-10 % Basophils (%) (Auto) 1 0-10 % Neutrophils # (Auto) 5.6 1.8-7.8 X 10^3 Lymphocytes # (Auto) 1.6 1.0-4.0 X 10^3 Monocytes # (Auto) 0.6 0.0-1.0 X 10^3 Eosinophils # (Auto) 0.5 H 0.0-0.3 10^3/uL Basophils # (Auto) 0.1 0.0-0.1 10^3/uL My Orders Orders - ADRIANNA SMITH MD Chest 1 View, Ap/Pa Only (08/17/17 13:49) Cbc With Automated Diff (08/17/17 13:53) Rapid Strep A Screen (08/17/17 13:53) Vital Signs/I&O 08/17/17 13:48 Temp 96.2 Pulse 76 Resp 18 B/P (MAP) 122/70 (87) Pulse Ox 94 Capillary Refill : Less Than 3 Seconds Blood Pressure Mean: 87 Departure Impression Primary Impression: Upper respiratory infection Disposition: 01 HOME, SELF-CARE Condition: Stable/Unchanged Departure-Patient Inst. Decision time for Depature: 15:10 Referrals: BELA WHITTAKER MD (PCP/Family) Primary Care Physician Patient Instructions: Cough, Adult (DC) Add. Discharge Instructions: All discharge instructions reviewed with patient and/or family. Voiced understanding. Use throat lozenges as necessary. Lots of liquids ADRIANNA SMITH MD Aug 17, 2017 15:11
[2017-08-17 15:32] VITALS: BP 122/70
== END 2017-08-17 15:32 | disposition home or self-care (01) ==
LOC: EDUNIT# 13:41 → ER 13:43
DX: J06.9 Acute upper respiratory infection, unspecified (principal); I48.91 Unspecified atrial fibrillation; Z79.82 Long term (current) use of aspirin; Z79.01 Long term (current) use of anticoagulants; Z95.1 Presence of aortocoronary bypass graft
CPT/HCPCS: 36415; 71045; 85025; 87430

== ENCOUNTER → 2018-01-01 | Outpatient (CLI) | payer MEDICARE, OTHER ==
[~2018-01-01] MED LIST changes: +REGADENOSON 0.4 MG/5 ML SYR (LEXISCAN) IV ONE
[2018-01-01] MEDS: CATHETER FLUSH 10 ML SYR IV PRN ×2 (11:31→13:06)
[2018-01-01 13:04] VITALS: BP 135/86
--- NOTE | 2018-01-01 20:39 | STRESS TEST ---
DATE OF SERVICE: 01/01/2018 RESTING AND POST REGADENOSON TECHNETIUM-99M TETROFOSMIN SPECT CT IMAGING ORDERING PHYSICIAN: Dr. Horton. PRIMARY PHYSICIAN: Dr. Tracy. CLINICAL DIAGNOSES: Coronary artery disease, paroxysmal atrial fibrillation. Baseline images were carried out after injection of 10.59 mCi of technetium-99m Tetrofosmin. This was followed by 0.4 mg regadenoson and 27.6 mCi of technetium-99m Tetrofosmin for stress imaging. The electrocardiogram showed sinus rhythm at baseline. There was right bundle branch block. The electrocardiogram did not change significantly with the regadenoson infusion. The patient reports some lightheadedness and headache following regadenoson infusion, which resolved in a few minutes. Review of images at rest and following stress indicates a somewhat patchy tracer uptake, but there does not appear to be distinct evidence of myocardial ischemia or infarction. Gated images show normal global left ventricular systolic function and normal regional wall motion. Left ventricular ejection fraction is calculated to be 67%. Left ventricular end diastolic volume is 53 mL. TID is absent (1.09). CONCLUSIONS: 1. No evidence of significant myocardial ischemia or infarction on this study. 2. Normal regional wall motion. 3. Normal global left ventricular systolic function with a calculated ejection fraction of 67%. Job ID: [id number] DocumentID: [id number] Dictated Date: 01/01/2018 15:35:48 Paper Counter Date: 01/01/2018 20:38:29 Dictated By: MICHELLE HORTON MD, MA, FACP, FACC,
== END ==
LOC: CARD 11:08
PROVIDERS: ATTEND Internal Medicine Cardiovascular Disease
DX: I25.10 Atherosclerotic heart disease of native coronary artery without angina pectoris (principal); I48.0 Paroxysmal atrial fibrillation; Z79.01 Long term (current) use of anticoagulants
CPT/HCPCS: 78452; 93017

== ENCOUNTER → 2018-01-26 | Outpatient (CLI) | payer MEDICARE, OTHER ==
[~2018-01-26] MED LIST changes: -REGADENOSON 0.4 MG/5 ML SYR (LEXISCAN) IV ONE
[2018-01-26 09:49] LABS: CALCIUM 9.7 MG/DL (8.5-10.1); CREATININE SERUM 1.18 MG/DL (0.60-1.30); POTASSIUM 4.7 MMOL/L (3.6-5.0)
== END ==
LOC: LAB 08:30
PROVIDERS: ATTEND Internal Medicine
DX: E03.9 Hypothyroidism, unspecified (principal); I25.10 Atherosclerotic heart disease of native coronary artery without angina pectoris; Z79.899 Other long term (current) drug therapy
CPT/HCPCS: 36415; 80048; 84443

== ENCOUNTER → 2018-01-26 | Outpatient (CLI) | payer MEDICARE, OTHER ==
[2018-01-26 10:56] LABS: BILIRUBIN,TOTAL 0.4 MG/DL (0.1-1.0); CALCIUM 9.6 MG/DL (8.5-10.1); CREATININE SERUM 1.18 MG/DL (0.60-1.30); POTASSIUM 4.7 MMOL/L (3.6-5.0); TOTAL PROTEIN 6.8 GM/DL (6.4-8.2)
== END ==
LOC: LAB 08:34
PROVIDERS: ATTEND Nurse Practitioner Family
DX: I25.10 Atherosclerotic heart disease of native coronary artery without angina pectoris (principal)
CPT/HCPCS: 36415; 80053; 80061

== ENCOUNTER → 2018-04-29 | Outpatient (CLI) | payer MEDICARE, OTHER | LOC: LAB 13:46 | PROVIDERS: ATTEND Internal Medicine | DX: E07.89 Other specified disorders of thyroid (principal) | CPT/HCPCS: 36415; 84443 ==

== ENCOUNTER 2018-12-22 15:48 | Emergency (ER) | payer MEDICARE, OTHER ==
[~2018-12-22] VITALS: Ht 177 cm; Wt 91.0 kg
[2018-12-22] MEDS ORDERED: NS IV 1000 ML 1,000 ML IV SCH (16:06)
[2018-12-22 16:24] LABS: BASOPHILS % (AUTO) 0 % (0-10); EOSINOPHILS % (AUTO) 0 % (0-10); HEMATOCRIT 48 % (40-54); HEMOGLOBIN 16.1 G/DL (13.3-17.7); LYMPHOCYTES # (AUTO) 0.3 X 10^3 (1.0-4.0); LYMPHOCYTES % (AUTO) 3 % (12-44); MEAN CORPUSCULAR HEMOGLOBIN 31 PG (25-34); MEAN CORPUSCULAR HGB CONC 33 G/DL (32-36); MEAN CORPUSCULAR VOLUME 92 FL (80-99); MEAN PLATELET VOLUME 10.5 FL (7.4-10.4); MONOCYTES # (AUTO) 0.4 X 10^3 (0.0-1.0); MONOCYTES % (AUTO) 4 % (0-12); NEUTROPHILS % (AUTO) 93 % (42-75); PLATELET COUNT 224 10^3/uL (130-400); RED CELL DISTRIBUTION WIDTH 13.8 % (10.0-14.5); WHITE BLOOD COUNT 9.8 10^3/uL (4.3-11.0)
--- NOTE | 2018-12-22 16:29 | ED GI ---
General Chief Complaint: Abdominal/GI Problems Stated Complaint: N,V,CONGESTION Nursing Triage Note: PT STATES AFTER SUPPER LAST NIGHT HE VOMITED ALL NIGHT. HAS NOT VOMITED TODAY BUT DOES NOT FEEL WELL AT ALL ET STATES HE IS WEAK. Sepsis Screen: Possible Severe Sepsis Risk History of Present Illness Date Seen by Provider: Dec 22, 2018 Time Seen by Provider: 16:10 Initial Comments 88-year-old male presents for weakness after vomiting overnight. Giselle ent reports that he vomited from approximately 8245-1230. He then slept until 1000 and took 1 Tylenol 500 mg. He ate at a friends home and no one else became ill. He denies chest pain, he has a significant cardiac history. He is not diabetic. He did drink half a bottle of Gatorade prior to arrival. He denies nausea at this time. He takes Eliquis. He did not take his morning medications today due to the nausea. Timing/Duration: 12-24 Hours Severity/Quality: Mild Location: Generalized Abdomen Radiation: No Radiation Associated Symptoms: Denies Symptoms, Weakness Allergies and Home Medications Allergies Coded Allergies: No Known Drug Allergies (Verified , 07/17/07) Home Medications Aspirin 81 Mg Chew, 81 MG PO DAILY, (Reported) Cholecalciferol 5,000 Unit Tablet, 5,000 UNIT PO DAILY, (Reported) Diltiazem Hcl 240 Mg Cap.sr.24h, 1 EACH PO DAILY, (Reported) Levothyroxine Sodium 50 Mcg Tablet, 75 MCG PO DAILY, (Reported) Simvastatin 40 Mg Tablet, 40 MG PO HS, (Reported) Venlafaxine HCl 75 Mg Cap.er.24h, 75 MG PO DAILY, (Reported) Warfarin Sod 10 Mg Tab, 10 MG PO DAILY, (Reported) [Cascara Sograda] , 450 MG PO DAILY Prescribed by: JOSE CHÁVEZ on 02/24/14 0950 Patient Home Medication List Home Medication List Reviewed: Yes Review of Systems Review of Systems Constitutional: no symptoms reported, see HPI Gastrointestinal: See HPI, Nausea, Poor Appetite, Poor Fluid Intake, Vomiting All Other Systems Reviewed Negative Unless Noted: Yes Past Axksdoj-Wufgcg-Ftckoy Hx Past Med/Social Hx: Reviewed Nursing Past Med/Soc Hx Patient Social History Alcohol Use: Occasionally Uses Recreational Drug Use: No Smoking Status: Never a Smoker 2nd Hand Smoke Exposure: No Recent Foreign Travel: No Contact w/Someone Who Travel: No Recent Infectious Disease Expo: No Recent Hopitalizations: Yes Immunizations Up To Date Date of Pneumonia Vaccine: Dec 17, 2013 Date of Influenza Vaccine: Dec 17, 2013 Past Medical History Surgeries: Yes (CABG 2005, PROSTATE 1979, CATARACTS 2000) Respiratory: No Cardiac: Yes (A-FIB, SICK SINUS SYNDROME) Neurological: No Reproductive Disorders: No Gastrointestinal: No Musculoskeletal: No Endocrine: Yes (THYROID) Psychosocial: No Integumentary: No Blood Disorders: No Family Medical History No Pertinent Family Hx Physical Exam Vital Signs Vital Signs - First Documented 12/22/18 15:56 Temp 38.1 Pulse 98 Resp 18 B/P (MAP) 162/78 (106) Pulse Ox 97 O2 Delivery Room Air Capillary Refill : Less Than 3 Seconds Height/Weight/BMI Height: 5'9.00" Weight: 191lbs. 0oz. 86.424323ax; 29.00 BMI Method:Stated General Appearance: WD/WN, no apparent distress HEENT: PERRL/EOMI, normal ENT inspection, TMs normal, pharynx normal, other (oral mucosa pink and moist.) Neck: non-tender, full range of motion, supple, normal inspection Respiratory: chest non-tender, lungs clear, normal breath sounds Cardiovascular: normal peripheral pulses, regular rate, rhythm Gastrointestinal: normal bowel sounds, non tender, soft, distended; No guarding, No rebound, No tenderness, No hernia, No mass Extremities: normal range of motion, non-tender, normal inspection Back: normal inspection, no CVA tenderness, no vertebral tenderness Neurologic/Psychiatric: no motor/sensory deficits, alert, normal mood/affect, oriented x 3 Skin: normal color, warm/dry Focused Exam Lactate Level 12/22/18 16:06: Lactic Acid Level 2.85*H 12/22/18 18:09: Lactic Acid Level 1.55 Lactic Acid Level Laboratory Tests Test 12/22/18 16:06 12/22/18 18:09 Lactic Acid Level 2.85 MMOL/L (0.50-2.00) *H 1.55 MMOL/L (0.50-2.00) Progress/Results/Core Measures Results/Orders Lab Results Laboratory Tests Test 12/22/18 16:06 12/22/18 17:35 12/22/18 18:09 Range/Units White Blood Count 9.8 4.3-11.0 10^3/uL Red Blood Count 5.26 4.35-5.85 10^6/uL Hemoglobin 16.1 13.3-17.7 G/DL Hematocrit 48 40-54 % Mean Corpuscular Volume 92 80-99 FL Mean Corpuscular Hemoglobin 31 25-34 PG Mean Corpuscular Hemoglobin Concent 33 32-36 G/DL Red Cell Distribution Width 13.8 10.0-14.5 % Platelet Count 224 130-400 10^3/uL Mean Platelet Volume 10.5 H 7.4-10.4 FL Neutrophils (%) (Auto) 93 H 42-75 % Lymphocytes (%) (Auto) 3 L 12-44 % Monocytes (%) (Auto) 4 0-12 % Eosinophils (%) (Auto) 0 0-10 % Basophils (%) (Auto) 0 0-10 % Neutrophils # (Auto) 9.0 H 1.8-7.8 X 10^3 Lymphocytes # (Auto) 0.3 L 1.0-4.0 X 10^3 Monocytes # (Auto) 0.4 0.0-1.0 X 10^3 Eosinophils # (Auto) 0.0 0.0-0.3 10^3/uL Basophils # (Auto) 0.0 0.0-0.1 10^3/uL Neutrophils % (Manual) 57 % Lymphocytes % (Manual) 3 % Monocytes % (Manual) 4 % Band Neutrophils 36 % Toxic Granulation 1+ Blood Morphology Comment NORMAL Prothrombin Time 16.3 H 12.2-14.7 SEC INR Comment 1.3 0.8-1.4 Activated Partial Thromboplast Time 33 24-35 SEC Sodium Level 141 135-145 MMOL/L Potassium Level 3.6 3.6-5.0 MMOL/L Chloride Level 106 98-107 MMOL/L Carbon Dioxide Level 21 21-32 MMOL/L Anion Gap 14 5-14 MMOL/L Blood Urea Nitrogen 24 H 7-18 MG/DL Creatinine 1.41 H 0.60-1.30 MG/DL Estimat Glomerular Filtration Rate 48 BUN/Creatinine Ratio 17 Glucose Level 137 H 70-105 MG/DL Lactic Acid Level 2.85 *H 1.55 0.50-2.00 MMOL/L Calcium Level 8.6 8.5-10.1 MG/DL Corrected Calcium 8.8 8.5-10.1 MG/DL Total Bilirubin 0.5 0.1-1.0 MG/DL Aspartate Amino Transf (AST/SGOT) 13 5-34 U/L Alanine Aminotransferase (ALT/SGPT) 15 0-55 U/L Alkaline Phosphatase 71 40-136 U/L Total Protein 6.5 6.4-8.2 GM/DL Albumin 3.7 3.2-4.5 GM/DL Urine Color YELLOW Urine Clarity CLEAR Urine pH 6 5-9 Urine Specific [place] 1.015 L 1.016-1.022 Urine Protein 2+ H NEGATIVE Urine Glucose (UA) NEGATIVE NEGATIVE Urine Ketones NEGATIVE NEGATIVE Urine Nitrite NEGATIVE NEGATIVE Urine Bilirubin NEGATIVE NEGATIVE Urine Urobilinogen NORMAL NORMAL MG/DL Urine Leukocyte Esterase 1+ H NEGATIVE Urine RBC (Auto) NEGATIVE NEGATIVE Urine RBC NONE /HPF Urine WBC 2-5 /HPF Urine Squamous Epithelial Cells 0-2 /HPF Urine Crystals NONE /LPF Urine Bacteria TRACE /HPF Urine Casts NONE /LPF Urine Mucus NEGATIVE /LPF Urine Culture Indicated YES Micro Results Microbiology 12/22/18 Influenza Types A,B Antigen (ALENA) - Final, Complete My Orders Orders - MARY GRACE SAENZ Cbc With Automated Diff (12/22/18 16:06) Comprehensive Metabolic Panel (12/22/18 16:06) Ua Culture If Indicated (12/22/18 16:06) Influenza A And B Antigens (12/22/18 16:06) Ed Iv/Invasive Line Start (12/22/18 16:06) Ns Iv 1000 Ml (Sodium Chloride 0.9%) (12/22/18 16:06) Acetaminophen Tablet/Caplet (Tylenol T (12/22/18 16:30) Blood Culture (12/22/18 16:19) Lactic Acid Analyzer (12/22/18 16:19) Manual Differential (12/22/18 16:06) Protime With Inr (12/22/18 16:33) Partial Thromboplastin Time (12/22/18 16:33) Ed Iv/Invasive Line Start (12/22/18 16:55) Ns Iv 1000 Ml (Sodium Chloride 0.9%) (12/22/18 16:55) Urine Culture (12/22/18 17:35) Rx-Ondansetron Po (Rx-Zofran Po) (12/22/18 18:36) Medications Given in ED Current Medications Medications Dose Ordered Sig/Pankaj Route Start Time Stop Time Status Last Admin Dose Admin Acetaminophen 650 mg ONCE ONCE PO 12/22/18 16:30 12/22/18 16:31 DC 12/22/18 16:28 650 MG Vital Signs/I&O 12/22/18 12/22/18 15:56 19:21 Temp 38.1 38.1 Pulse 98 98 Resp 18 18 B/P (MAP) 162/78 (106) 121/64 (106) Pulse Ox 97 98 O2 Delivery Room Air Room Air Blood Pressure Mean: 106 Progress Progress Note : Time: 16:10 Progress Note Patient seen and evaluated, will give normal saline 1 L, Tylenol 650 mg and evaluate labs. Patient declines any other needs at this time. 1710 Temp 37.7* No complaints at this time. Will give second liter of NS per IV. 1830 Temp 37.3* No further nausea and vomiting. Patient reports to be feeling much better. He is hungry. Repeat lactic acid 1.5. Discharge instructions and return return precautions reviewed with the patient. All questions answered. Departure Impression Primary Impression: Nausea and vomiting Qualified Codes: R11.14 - Bilious vomiting Additional Impression: Dehydration Disposition: 01 HOME, SELF-CARE Condition: Improved Departure-Patient Inst. Decision time for Depature: 18:30 Referrals: BELA WHITTAKER MD (PCP/Family) Primary Care Physician Patient Instructions: Nausea and Vomiting, Adult (DC) Add. Discharge Instructions: Clear liquid diet for the next 2-4 hours, then bland diet as tolerated. Uses Zofran 1-2 tablets every 6-8 hours as needed for nausea and vomiting. Follow-up with your primary care provider if symptoms are not improving or worsen. Return to the emergency department for new, urgent health care needs. All discharge instructions reviewed with patient and/or family. Voiced understanding. Copy Copies To 1: BELA WHITTAKER MD, AMY ARNP Dec 22, 2018 16:29
[2018-12-22] MEDS ORDERED: ACETAMINOPHEN 325 MG TABLET PO ONE (16:30)
[2018-12-22 16:43] LABS: ALBUMIN 3.7 GM/DL (3.2-4.5); BILIRUBIN,TOTAL 0.5 MG/DL (0.1-1.0); CALCIUM 8.6 MG/DL (8.5-10.1); CREATININE SERUM 1.41 MG/DL (0.60-1.30); POTASSIUM 3.6 MMOL/L (3.6-5.0); TOTAL PROTEIN 6.5 GM/DL (6.4-8.2)
[2018-12-22 16:46] LABS: INR 1.3 (0.8-1.4); PROTHROMBIN TIME PATIENT 16.3 SEC (12.2-14.7)
[2018-12-22 16:47] LABS: BAND NEUTROPHILS 36 %; LYMPHOCYTES % (MANUAL) 3 %; MONOCYTES % (MANUAL) 4 %; NEUTROPHILS % (MANUAL) 57 %; RBC MORPH NORMAL
[2018-12-22 16:48] LABS: TOXIC GRANULATION/VACUOLAZATIO 1+
[2018-12-22] MEDS: NS IV 1000 ML 1,000 ML IV SCH ×2 (17:13→17:25)
[2018-12-22 17:43] LABS: BILIRUBIN,URINE NEGATIVE (NEGATIVE); CLARITY,URINE CLEAR; COLOR,URINE YELLOW; GLUCOSE, URINE (UA) NEGATIVE (NEGATIVE); KETONES,URINE NEGATIVE (NEGATIVE); LEUKOCYTE ESTERASE ,URINE 1+ (NEGATIVE); NITRITE,URINE NEGATIVE (NEGATIVE); PH,URINE 6 (5-9); PROTEIN,URINE 2+ (NEGATIVE); UROBILINOGEN,URINE NORMAL (NORMAL)
[2018-12-22 17:50] LABS: BACTERIA,URINE TRACE /HPF; SQUAMOUS EPITHELIAL CELL,UR 0-2 /HPF
[2018-12-22] MEDS ORDERED: RX-ONDANSETRON 4 MG ODT (ZOFRAN) PPK #4 PO STA (18:36)
[2018-12-22 19:21] VITALS: BP 121/64
== END 2018-12-22 19:21 | disposition home or self-care (01) ==
LOC: EDUNIT# 15:48 → ER 15:50
DX: R11.2 Nausea with vomiting, unspecified (principal); E86.0 Dehydration; I48.91 Unspecified atrial fibrillation; Z79.01 Long term (current) use of anticoagulants; Z79.82 Long term (current) use of aspirin; Z95.1 Presence of aortocoronary bypass graft
CPT/HCPCS: 36415; 80053; 81000; 83605; 85007; 85027; 85610; 85730; 87040; 87088; 87804

== ENCOUNTER → 2019-01-09 | Outpatient (CLI) | payer MEDICARE, OTHER ==
[2019-01-09 07:31] LABS: CALCIUM 9.2 MG/DL (8.5-10.1); CREATININE SERUM 1.33 MG/DL (0.60-1.30); POTASSIUM 4.2 MMOL/L (3.6-5.0)
[2019-01-10 10:06] LABS: BASOPHILS # (AUTO) 0.1 10^3/uL (0.0-0.1); BASOPHILS % (AUTO) 1 % (0-10); EOSINOPHILS # (AUTO) 0.5 10^3/uL (0.0-0.3); EOSINOPHILS % (AUTO) 7 % (0-10); HEMATOCRIT 45 % (40-54); HEMOGLOBIN 14.7 G/DL (13.3-17.7); LYMPHOCYTES # (AUTO) 2.4 X 10^3 (1.0-4.0); LYMPHOCYTES % (AUTO) 31 % (12-44); MEAN CORPUSCULAR HEMOGLOBIN 30 PG (25-34); MEAN CORPUSCULAR HGB CONC 33 G/DL (32-36); MEAN CORPUSCULAR VOLUME 92 FL (80-99); MONOCYTES # (AUTO) 0.6 X 10^3 (0.0-1.0); MONOCYTES % (AUTO) 8 % (0-12); NEUTROPHILS % (AUTO) 53 % (42-75); PLATELET COUNT 288 10^3/uL (130-400); RED CELL DISTRIBUTION WIDTH 13.6 % (10.0-14.5); WHITE BLOOD COUNT 7.5 10^3/uL (4.3-11.0)
== END ==
LOC: LAB 06:47
PROVIDERS: ATTEND Internal Medicine
DX: I48.0 Paroxysmal atrial fibrillation (principal); E06.3 Autoimmune thyroiditis; I25.10 Atherosclerotic heart disease of native coronary artery without angina pectoris
CPT/HCPCS: 36415; 80048; 80061; 84443; 85025

== ENCOUNTER → 2019-04-14 | Outpatient (CLI) | payer MEDICARE, OTHER | LOC: LAB 06:47 | PROVIDERS: ATTEND Internal Medicine | DX: E78.5 Hyperlipidemia, unspecified (principal); E06.3 Autoimmune thyroiditis | CPT/HCPCS: 36415; 80061; 84443 ==

== ENCOUNTER → 2019-07-28 | Outpatient (RCR) | payer MEDICARE, OTHER | END | disposition home or self-care (01) | PROVIDERS: ATTEND Internal Medicine | DX: M54.16 Radiculopathy, lumbar region (principal); M17.12 Unilateral primary osteoarthritis, left knee ==

== ENCOUNTER → 2019-08-29 | Outpatient (CLI) | payer MEDICARE, OTHER ==
[2019-08-29 11:58] LABS: BASOPHILS % (AUTO) 0 % (0-10); EOSINOPHILS % (AUTO) 0 % (0-10); HEMATOCRIT 43 % (40-54); HEMOGLOBIN 14.5 G/DL (13.3-17.7); LYMPHOCYTES # (AUTO) 1.2 X 10^3 (1.0-4.0); LYMPHOCYTES % (AUTO) 9 % (12-44); MEAN CORPUSCULAR HEMOGLOBIN 30 PG (25-34); MEAN CORPUSCULAR HGB CONC 34 G/DL (32-36); MEAN CORPUSCULAR VOLUME 89 FL (80-99); MEAN PLATELET VOLUME 10.2 FL (7.4-10.4); MONOCYTES # (AUTO) 0.5 X 10^3 (0.0-1.0); MONOCYTES % (AUTO) 4 % (0-12); NEUTROPHILS # (AUTO) 10.9 X 10^3 (1.8-7.8); NEUTROPHILS % (AUTO) 87 % (42-75); PLATELET COUNT 270 10^3/uL (130-400); RED CELL DISTRIBUTION WIDTH 14.8 % (10.0-14.5); WHITE BLOOD COUNT 12.6 10^3/uL (4.3-11.0)
[2019-08-29 12:05] LABS: ALBUMIN 4.1 GM/DL (3.2-4.5); POTASSIUM 4.5 MMOL/L (3.6-5.0)
[2019-08-29 12:06] LABS: CALCIUM 9.4 MG/DL (8.5-10.1)
[2019-08-29 12:08] LABS: TOTAL PROTEIN 7.2 GM/DL (6.4-8.2)
[2019-08-29 12:09] LABS: BILIRUBIN,TOTAL 0.3 MG/DL (0.1-1.0)
[2019-08-29 12:11] LABS: CREATININE SERUM 1.18 MG/DL (0.60-1.30)
[2019-08-29 12:36] LABS: BAND NEUTROPHILS 0 %; BASOPHILS % (MANUAL) 0 %; EOSINOPHILS % (MANUAL) 0 %; LYMPHOCYTES % (MANUAL) 11 %; MONOCYTES % (MANUAL) 6 %; NEUTROPHILS % (MANUAL) 83 %; RBC MORPH NORMAL
== END ==
LOC: LAB 11:35
PROVIDERS: ATTEND Internal Medicine
DX: E03.9 Hypothyroidism, unspecified (principal); I10 Essential (primary) hypertension; M54.16 Radiculopathy, lumbar region
CPT/HCPCS: 36415; 80053; 84443; 85007; 85027

== ENCOUNTER → 2019-10-29 | Outpatient (RCR) | payer MEDICARE, OTHER | END | disposition home or self-care (01) | PROVIDERS: ATTEND Internal Medicine | DX: M54.16 Radiculopathy, lumbar region (principal); M17.12 Unilateral primary osteoarthritis, left knee ==

== ENCOUNTER → 2019-10-30 | Outpatient (CLI) | payer MEDICARE, OTHER ==
[2019-10-30 07:06] LABS: BASOPHILS # (AUTO) 0.1 10^3/uL (0.0-0.1); BASOPHILS % (AUTO) 1 % (0-10); EOSINOPHILS # (AUTO) 0.6 10^3/uL (0.0-0.3); EOSINOPHILS % (AUTO) 7 % (0-10); HEMATOCRIT 43 % (40-54); HEMOGLOBIN 14.5 G/DL (13.3-17.7); LYMPHOCYTES # (AUTO) 2.3 X 10^3 (1.0-4.0); LYMPHOCYTES % (AUTO) 29 % (12-44); MEAN CORPUSCULAR HEMOGLOBIN 30 PG (25-34); MEAN CORPUSCULAR HGB CONC 33 G/DL (32-36); MEAN CORPUSCULAR VOLUME 91 FL (80-99); MEAN PLATELET VOLUME 10.1 FL (7.4-10.4); MONOCYTES # (AUTO) 0.5 X 10^3 (0.0-1.0); MONOCYTES % (AUTO) 7 % (0-12); NEUTROPHILS # (AUTO) 4.4 X 10^3 (1.8-7.8); NEUTROPHILS % (AUTO) 56 % (42-75); PLATELET COUNT 269 10^3/uL (130-400); RED CELL DISTRIBUTION WIDTH 14.1 % (10.0-14.5); WHITE BLOOD COUNT 7.8 10^3/uL (4.3-11.0)
[2019-10-30 07:24] LABS: BILIRUBIN,TOTAL 0.4 MG/DL (0.1-1.0); CALCIUM 9.2 MG/DL (8.5-10.1); CREATININE SERUM 1.55 MG/DL (0.60-1.30); POTASSIUM 4.6 MMOL/L (3.6-5.0)
== END ==
LOC: LAB 06:52
PROVIDERS: ATTEND Internal Medicine
DX: E05.90 Thyrotoxicosis, unspecified without thyrotoxic crisis or storm (principal); E03.9 Hypothyroidism, unspecified
CPT/HCPCS: 36415; 80053; 84443; 85025

== ENCOUNTER → 2019-11-25 | Outpatient (CLI) | payer MEDICARE, OTHER ==
[2019-11-25 07:14] LABS: POTASSIUM 4.6 MMOL/L (3.6-5.0)
[2019-11-25 07:15] LABS: CALCIUM 9.7 MG/DL (8.5-10.1)
[2019-11-25 07:19] LABS: CREATININE SERUM 1.57 MG/DL (0.60-1.30)
== END ==
LOC: LAB 06:51
PROVIDERS: ATTEND Internal Medicine
DX: I10 Essential (primary) hypertension (principal); N17.9 Acute kidney failure, unspecified
CPT/HCPCS: 36415; 80048

== ENCOUNTER 2020-01-08 09:03 | Outpatient (RCR) | payer MEDICARE, OTHER | END 2020-02-10 | disposition home or self-care (01) | PROVIDERS: ATTEND Internal Medicine | DX: M17.12 Unilateral primary osteoarthritis, left knee (principal); M54.16 Radiculopathy, lumbar region ==

== ENCOUNTER → 2020-05-14 | Outpatient (CLI) | payer MEDICARE, OTHER ==
--- NOTE | 2020-05-14 11:15 | Diagnostic Imaging Report ---
Clinical indication: Patient states trouble breathing past 4-5 days. Exam: Chest x-ray PA and lateral views. Comparisons: Chest x-ray dated 08/17/2017. Findings: Lungs/pleura: There is interval development of an amorphous airspace opacity in the lingular region. Otherwise, again seen increased lung markings throughout both lung bases which may be related to chronic lung changes/scarring. The remainder of the lungs are clear. There is no pneumothorax. There is no pleural effusion. Mediastinum: Unremarkable. Pulmonary vasculature: Unremarkable. Heart: Cardiac silhouette is within normal limits. Again seen postop change to the chest with sternotomy wires. Bones/extrathoracic soft tissue: There are hypertrophic spurs involving the thoracic spine. Impression: 1: There is interval development of a small amorphous area of airspace opacity involving the lingular region which may represent a lung infiltrate. 2: Otherwise, stable chest x-ray exam with chronic lung changes. Dictated by: Dictated on workstation # [id number]
== END ==
LOC: RAD 10:16
PROVIDERS: ATTEND Internal Medicine
DX: R05 Cough (principal); R06.00 Dyspnea, unspecified
CPT/HCPCS: 71046

== ENCOUNTER → 2020-05-20 | Outpatient (CLI) | payer MEDICARE, OTHER ==
[2020-05-20 07:52] LABS: ALBUMIN 3.8 GM/DL (3.2-4.5); BILIRUBIN,TOTAL 0.2 MG/DL (0.1-1.0); CALCIUM 9.3 MG/DL (8.5-10.1); CREATININE SERUM 1.44 MG/DL (0.60-1.30); POTASSIUM 4.5 MMOL/L (3.6-5.0)
== END ==
LOC: LAB 07:15
PROVIDERS: ATTEND Internal Medicine
DX: I10 Essential (primary) hypertension (principal)
CPT/HCPCS: 36415; 80053; 80061

== ENCOUNTER → 2020-09-24 | Outpatient (CLI) | payer MEDICARE, OTHER | LOC: LAB 07:38 | PROVIDERS: ATTEND Internal Medicine | DX: E03.9 Hypothyroidism, unspecified (principal) | CPT/HCPCS: 36415; 84443 ==

== ENCOUNTER 2020-11-03 15:39 | Observation (INO) | payer MEDICARE, OTHER ==
[~2020-11-03] VITALS: Ht 175 cm; Wt 87.1 kg
[2020-11-03 16:29] LABS: BASOPHILS % (AUTO) 0 % (0-10); EOSINOPHILS % (AUTO) 0 % (0-10); HEMATOCRIT 46 % (40-54); HEMOGLOBIN 15.2 g/dL (13.3-17.7); LYMPHOCYTES % (AUTO) 10 % (12-44); MEAN CORPUSCULAR HEMOGLOBIN 31 pg (25-34); MEAN CORPUSCULAR HGB CONC 33 g/dL (32-36); MEAN CORPUSCULAR VOLUME 94 fL (80-99); MEAN PLATELET VOLUME 10.3 fL (9.0-12.2); MONOCYTES # (AUTO) 0.4 10^3/uL (0.0-1.0); MONOCYTES % (AUTO) 4 % (0-12); NEUTROPHILS # (AUTO) 8.6 10^3/uL (1.8-7.8); NEUTROPHILS % (AUTO) 85 % (42-75); PLATELET COUNT 235 10^3/uL (130-400)
[2020-11-03 16:40] LABS: ALBUMIN 3.8 GM/DL (3.2-4.5)
[2020-11-03 16:43] LABS: TOTAL PROTEIN 7.2 GM/DL (6.4-8.2)
[2020-11-03 16:45] LABS: BILIRUBIN,TOTAL 0.4 MG/DL (0.1-1.0)
[2020-11-03 16:46] LABS: CREATININE SERUM 1.39 MG/DL (0.60-1.30)
[2020-11-03 16:50] LABS: MAGNESIUM 1.8 MG/DL (1.6-2.4)
[2020-11-03 16:58] LABS: INR 1.2 (0.8-1.4); PROTHROMBIN TIME PATIENT 15.3 SEC (12.2-14.7)
[2020-11-03 17:11] LABS: CALCIUM 9.4 MG/DL (8.5-10.1)
[2020-11-03] MEDS ORDERED: NS IV 1000 ML 1,000 ML IV SCH (17:15)
--- NOTE | 2020-11-03 18:20 | Diagnostic Imaging Report ---
EXAMINATION: Portable erect AP chest at 6:06 p.m. INDICATION: Cough. FINDINGS: The heart size is within normal limits and stable when compared to 08/17/2017. The sternotomy wires and surgical clips noted previously are again evident and no different. In the interval since the prior study, however, a vague area of increased density has developed over the right lung base. There is also a question of a new area of increased density in the left mid lung near the left heart border. Both of these findings are suspicious for pneumonia/atelectasis. The upper lungs are generally clear. The mediastinum is not widened. The osseous structures are intact. IMPRESSION: The findings do suggest bibasilar pneumonia/atelectasis with greater involvement of the right. A follow-up study would be recommended for continued evaluation. Dictated by: Dictated on workstation # [id number]
[2020-11-03] MEDS ORDERED: AZITHROMYCIN 250 MG TAB (ZITHROMAX) PO STA (18:52)
[2020-11-03] MEDS ORDERED: CEFD300C3 PO (19:22)
--- NOTE | 2020-11-03 19:22 | ED General ---
General Chief Complaint: Cough/Cold/Flu Symptoms Stated Complaint: COUGH / CONGESTION / DECREASED APPETITE / WEAKNESS Nursing Triage Note: PT CO OF COLD COUGH FLU FOR 2 WEEKS Source of Information: Patient Exam Limitations: No Limitations (MEG YARBROUGH MD) History of Present Illness Date Seen by Provider: Nov 03, 2020 Time Seen by Provider: 15:57 Initial Comments This 89-year-old gentleman presents to the emergency room with complaints of cough, congestion, loss of appetite, and weakness. He has had his Covid vaccine in April. He also reports having some minor left chest pain about 2 days ago. He does have history of coronary artery disease status post CABG and is due to have a repeat stress test with Dr. Clifford guevara. He denies any cough or shortness of breath at this time. No active chest pain today. (MEG YARBROUGH MD) Allergies and Home Medications Allergies Coded Allergies: No Known Drug Allergies (Verified , 07/17/07) Home Medications Aspirin 81 Mg Chew, 81 MG PO DAILY, (Reported) Cefdinir 300 Mg Capsule, 300 MG PO BID Prescribed by: MEG PENALOZA on 11/03/201921 Cholecalciferol 5,000 Unit Tablet, 5,000 UNIT PO DAILY, (Reported) Diltiazem Hcl 240 Mg Cap.sr.24h, 1 EACH PO DAILY, (Reported) Levothyroxine Sodium 50 Mcg Tablet, 75 MCG PO DAILY, (Reported) Simvastatin 40 Mg Tablet, 40 MG PO HS, (Reported) Venlafaxine HCl 75 Mg Cap.er.24h, 75 MG PO DAILY, (Reported) Warfarin Sod 10 Mg Tab, 10 MG PO DAILY, (Reported) [Cascara Sograda] , 450 MG PO DAILY Prescribed by: JOSE CHÁVEZ on 02/24/14 0950 Patient Home Medication List Home Medication List Reviewed: Yes (MEG YARBROUGH MD) Review of Systems Review of Systems Constitutional: see HPI EENTM: no symptoms reported Respiratory: no symptoms reported Cardiovascular: see HPI Gastrointestinal: see HPI Genitourinary: no symptoms reported Musculoskeletal: no symptoms reported Skin: no symptoms reported Psychiatric/Neurological: See HPI Hematologic/Lymphatic: No Symptoms Reported Immunological/Allergic: no symptoms reported (MEG YARBROUGH MD) Past Zxsukry-Ficdnu-Lpkdwc Hx Patient Social History Tobacco Use?: No (MEG YARBROUGH MD) Past Medical History Surgeries: Yes (CABG 2005, PROSTATE 1979, CATARACTS 2000) Respiratory: No Cardiac: Yes (A-FIB, SICK SINUS SYNDROME) Atrial Fibrillation Neurological: No Reproductive Disorders: No Genitourinary: Yes Benign Prostatic Hyperpl Gastrointestinal: No Musculoskeletal: No Endocrine: Yes (THYROID) Hypothyroidsim Cancer: No Psychosocial: No Integumentary: No Blood Disorders: No (MEG YARBROUGH MD) Family Medical History No Pertinent Family Hx (MEG YARBROUGH MD) Physical Exam Vital Signs Vital Signs - First Documented 11/03/20 15:45 Temp 36.1 Pulse 130 Resp 24 B/P (MAP) 140/82 (101) Pulse Ox 98 (DEVIN PATEL MD) Vital Signs Capillary Refill : Less Than 3 Seconds (MEG YARBROUGH MD) Height, Weight, BMI Height: 5'9.00" Weight: 191lbs. 0oz. 86.800840jb; 35.00 BMI Method:Stated General Appearance: No Apparent Distress, WD/WN HEENT: PERRL/EOMI, Normal ENT Inspection Neck: Normal Inspection; No JVD Respiratory: Lungs Clear, Normal Breath Sounds, No Accessory Muscle Use Cardiovascular: Regular Rate, Rhythm, No Edema, Systolic Murmur (Subtle) Gastrointestinal: Normal Bowel Sounds, Non Tender, Soft Extremity: Normal Inspection, Non Tender, No Pedal Edema Neurologic/Psychiatric: Alert, Oriented x3, No Motor/Sensory Deficits, Normal Mood/Affect, gun fertilizer II-XII Norm as Tested Skin: Normal Color, Warm/Dry (MEG YARBROUGH MD) Progress/Results/Core Measures Suspected Sepsis SIRS Temperature: Pulse: 130 Respiratory Rate: 24 Laboratory Tests 11/03/20 16:15: White Blood Count 10.0 Blood Pressure 140 /82 Mean: 101 Laboratory Tests 11/03/20 16:15: Creatinine 1.39H, INR Comment 1.2, Platelet Count 235, Total Bilirubin 0.4 (MEG YARBROUGH MD) Results/Orders Lab Results Laboratory Tests Test 11/03/20 16:10 11/03/20 16:15 11/03/20 19:45 Range/Units SARS-CoV-2 RNA (RT-PCR) Detected H Not Detecte White Blood Count 10.0 4.3-11.0 10^3/uL Red Blood Count 4.92 4.30-5.52 10^6/uL Hemoglobin 15.2 13.3-17.7 g/dL Hematocrit 46 40-54 % Mean Corpuscular Volume 94 80-99 fL Mean Corpuscular Hemoglobin 31 25-34 pg Mean Corpuscular Hemoglobin Concent 33 32-36 g/dL Red Cell Distribution Width 14.0 10.0-14.5 % Platelet Count 235 130-400 10^3/uL Mean Platelet Volume 10.3 9.0-12.2 fL Immature Granulocyte % (Auto) 0 % Neutrophils (%) (Auto) 85 H 42-75 % Lymphocytes (%) (Auto) 10 L 12-44 % Monocytes (%) (Auto) 4 0-12 % Eosinophils (%) (Auto) 0 0-10 % Basophils (%) (Auto) 0 0-10 % Neutrophils # (Auto) 8.6 H 1.8-7.8 10^3/uL Lymphocytes # (Auto) 1.0 1.0-4.0 10^3/uL Monocytes # (Auto) 0.4 0.0-1.0 10^3/uL Eosinophils # (Auto) 0.0 0.0-0.3 10^3/uL Basophils # (Auto) 0.0 0.0-0.1 10^3/uL Immature Granulocyte # (Auto) 0.0 0.0-0.1 10^3/uL Prothrombin Time 15.3 H 12.2-14.7 SEC INR Comment 1.2 0.8-1.4 Activated Partial Thromboplast Time 41 H 24-35 SEC D-Dimer 0.55 H 0.00-0.49 UG/ML Sodium Level 132 L 135-145 MMOL/L Potassium Level 5.0 3.6-5.0 MMOL/L Chloride Level 104 98-107 MMOL/L Carbon Dioxide Level 17 L 21-32 MMOL/L Anion Gap 11 5-14 MMOL/L Blood Urea Nitrogen 27 H 7-18 MG/DL Creatinine 1.39 H 0.60-1.30 MG/DL Estimat Glomerular Filtration Rate 48 BUN/Creatinine Ratio 19 Glucose Level 109 H 70-105 MG/DL Calcium Level 9.4 8.5-10.1 MG/DL Corrected Calcium 9.6 8.5-10.1 MG/DL Magnesium Level 1.8 1.6-2.4 MG/DL Total Bilirubin 0.4 0.1-1.0 MG/DL Aspartate Amino Transf (AST/SGOT) 33 5-34 U/L Alanine Aminotransferase (ALT/SGPT) 16 0-55 U/L Alkaline Phosphatase 83 40-136 U/L Myoglobin 66.4 10.0-92.0 NG/ML Troponin I 0.029 H 0.039 H <0.028 NG/ML B-Type Natriuretic Peptide 20.3 <100.0 PG/ML Total Protein 7.2 6.4-8.2 GM/DL Albumin 3.8 3.2-4.5 GM/DL (DEVIN PATEL MD) My Orders Orders - DEVIN PATEL MD Fibrin Degradation Products (11/03/20 20:24) Aspirin Chewable Tablet (Baby Aspirin Ch (11/03/20 21:03) (DEVIN PATEL MD) Vital Signs/I&O 11/03/20 15:45 Temp 36.1 Pulse 130 Resp 24 B/P (MAP) 140/82 (101) Pulse Ox 98 (DEVIN PATEL MD) Vital Signs/I&O Capillary Refill : Less Than 3 Seconds (MEG YARBROUGH MD) Blood Pressure Mean: 101 Progress Note : Progress Note Assumed care of the patient from Dr. Yarbrough at 2044. Patient did have increasing troponin from 0.029 to 0.[address] Horton was paged. I did discuss the case with Dr. Horton. Given the fact that his troponin is elevating, admission is indicated. We discussed this with the patient previously and he was not necessarily interested because he has a cat with diabetes that needs its shots. I have rediscussed the case with him at 2104 and he is agreeable. I did discuss the case with Dr. Tolbert at 2110 and she accepts patient for admission, observation status to the hospitalist team. I rediscussed the case with Dr. Horton at 2113. We will continue Arely Olsen CD and add ASA 81 mg p.o. now and daily. He will see the patient in the morning. It is okay for the patient to eat. I did also discuss all of this with the patient and he is in agreement. Admit, observation status. Patient updated and aware that he is COVID-19 positive. (DEVIN PATEL MD) ECG Initial ECG Impression Date: Nov 03, 2020 Initial ECG Impression Time: 17:26 Initial ECG Rate: 80 Initial ECG Rhythm: Normal Sinus Comment Sinus rhythm with no ST elevation or depression. Right bundle branch block. No axis deviation. (MEG YARBROUGH MD) Diagnostic Imaging Diagonstic Imaging: Xray Plain Films/CT/US/NM/MRI: chest Comments [facility], [place] NAME: BRIGETTE SAMANIEGO [facility] REC#: [id number] PT STATUS: REG ER : [id number] PHYSICIAN: CJ YEUNG APRN ADMIT DATE: 11/03/20/ER Draft Date of Exam:11/03/20 CHEST 1 VIEW, AP/PA ONLY EXAMINATION: Portable erect AP chest at 6:06 p.m. INDICATION: Cough. FINDINGS: The heart size is within normal limits and stable when compared to 08/17/2017. The sternotomy wires and surgical clips noted previously are again evident and no different. In the interval since the prior study, however, a vague area of increased density has developed over the right lung base. There is also a question of a new area of increased density in the left mid lung near the left heart border. Both of these findings are suspicious for pneumonia/atelectasis. The upper lungs are generally clear. The mediastinum is not widened. The osseous structures are intact. IMPRESSION: The findings do suggest bibasilar pneumonia/atelectasis with greater involvement of the right. A follow-up study would be recommended for continued evaluation. Dictated on workstation # [id number] Dict: 11/03/206 Trans: 11/03/20 1820 [id number] Interpreted by: EMY GROVER MD Electronically signed by: (DEVIN PATEL MD) Departure Communication (Admissions) Time/Spoke to Admitting Phy: 21:11 Time/Spoke to Consulting Phy: 20:59 (DEVIN PATEL MD) Impression Primary Impression: Pneumonia due to COVID-19 virus Additional Impression: Chest pain Qualified Codes: R07.9 - Chest pain, unspecified Disposition: ADMITTED INPATIENT Condition: Stable Admissions Decision to Admit Reason: Admit from ER (General) Decision to Admit/Date: Nov 03, 2020 Time/Decision to Admit Time: 20:59 (DEVIN PATEL MD) Departure-Patient Inst. Referrals: BLEA WHITTAKER MD (PCP/Family) Primary Care Physician Patient Instructions: COVID-19 Overview Add. Discharge Instructions: All discharge instructions reviewed with patient and/or family. Voiced understanding. Scripts Cefdinir (Cefdinir) 300 Mg Capsule 300 MG PO BID, #20 CAP Prov: MEG YARBROUGH MD 11/03/20 MEG YARBROUGH MD Nov 03, 2020 19:22 DEVIN PATEL MD Nov 03, 2020 21:28
[2020-11-03] MEDS ORDERED: ASPIRIN 81 MG CHEW (CHILDREN'S ASA) PO STA (21:03)
[2020-11-03 22:14] LABS: BILIRUBIN,URINE NEGATIVE (NEGATIVE); CLARITY,URINE CLEAR; COLOR,URINE YELLOW; GLUCOSE, URINE (UA) NEGATIVE (NEGATIVE); KETONES,URINE TRACE (NEGATIVE); LEUKOCYTE ESTERASE ,URINE NEGATIVE (NEGATIVE); NITRITE,URINE NEGATIVE (NEGATIVE); PROTEIN,URINE 1+ (NEGATIVE)
[2020-11-03 22:20] LABS: BACTERIA,URINE TRACE /HPF; SQUAMOUS EPITHELIAL CELL,UR RARE /HPF
[2020-11-04 00:45] VITALS: BP 129/74
[2020-11-04 00:57] VITALS: BP 140/82
[2020-11-04] MEDS ORDERED: CATHETER FLUSH 10 ML SYR IV PRN (01:00)
[2020-11-04] MEDS ORDERED: RT-ALBUTEROL HFA 8.5 GM INHALER IH PRN (01:15)
[2020-11-04] MEDS ORDERED: ACETAMINOPHEN 325 MG TABLET ONE (02:11)
[2020-11-04] MEDS ORDERED: diphenhydrAMINE 25 MG TAB (BENADRYL) PO ONE ×2 (02:11→02:15)
[2020-11-04] MEDS ORDERED: ACETAMINOPHEN 325 MG TABLET PO ONE (02:15)
[2020-11-04 04:05] VITALS: BP 133/66
[2020-11-04] MEDS: CATHETER FLUSH 10 ML SYR IV SCH ×2 (06:08→15:03)
[2020-11-04 06:23] LABS: TRIGLYCERIDES 100 MG/DL (<150); VLDL CHOLESTEROL 20 MG/DL (5-40)
[2020-11-04 06:28] LABS: CHOLESTEROL 152 MG/DL (< 200)
[2020-11-04 06:29] LABS: HDL CHOLESTEROL 28 MG/DL (40-60)
[2020-11-04 07:38] LABS: BASOPHILS % (AUTO) 0 % (0-10); EOSINOPHILS # (AUTO) 0.1 10^3/uL (0.0-0.3); EOSINOPHILS % (AUTO) 1 % (0-10); HEMATOCRIT 42 % (40-54); HEMOGLOBIN 13.9 g/dL (13.3-17.7); LYMPHOCYTES # (AUTO) 1.4 10^3/uL (1.0-4.0); LYMPHOCYTES % (AUTO) 23 % (12-44); MEAN CORPUSCULAR HEMOGLOBIN 31 pg (25-34); MEAN CORPUSCULAR HGB CONC 33 g/dL (32-36); MEAN CORPUSCULAR VOLUME 93 fL (80-99); MEAN PLATELET VOLUME 10.3 fL (9.0-12.2); MONOCYTES # (AUTO) 0.4 10^3/uL (0.0-1.0); MONOCYTES % (AUTO) 7 % (0-12); NEUTROPHILS # (AUTO) 4.2 10^3/uL (1.8-7.8); NEUTROPHILS % (AUTO) 68 % (42-75); PLATELET COUNT 217 10^3/uL (130-400); WHITE BLOOD COUNT 6.2 10^3/uL (4.3-11.0)
[2020-11-04 07:56] LABS: BUN/CREATININE RATIO 19; CALCIUM 9.2 MG/DL (8.5-10.1); CARBON DIOXIDE 17 MMOL/L (21-32); CHLORIDE 108 MMOL/L (98-107); CREATININE SERUM 1.18 MG/DL (0.60-1.30); GFR ESTIMATED 58; GLUCOSE 92 MG/DL (70-105); SODIUM 136 MMOL/L (135-145)
[2020-11-04 08:00] VITALS: BP 122/58
[2020-11-04] MEDS ORDERED: RT-ALBUTEROL HFA 8.5 GM INHALER IH SCH (08:00)
[2020-11-04] MEDS ORDERED: APIXABAN 5 MG (ELIQUIS) TABLET PO SCH (09:00)
[2020-11-04] MEDS ORDERED: ASPIRIN E.C. 81 MG (ECOTRIN) TAB PO SCH (09:00)
[2020-11-04] MEDS ORDERED: ASPI-1238 PO (11:59)
[2020-11-04] MEDS ORDERED: APIX5TAB PO (11:59)
[2020-11-04] MEDS ORDERED: DILT240C91 PO (11:59)
[2020-11-04] MEDS ORDERED: LEVO88TA54 PO (11:59)
[2020-11-04] MEDS ORDERED: SPIR25TA5 PO (11:59)
[2020-11-04 12:00] VITALS: BP 111/57
--- NOTE | 2020-11-04 13:34 | Consultation-Cardiology ---
HPI-Cardiology Cardiology Consultation: Date of Consultation 11/04/20 Time Seen by a Provider: 08:30 Date of Admission Attending Physician Jo Tolbert DO Admitting Physician Laurent Tracy MD Consulting Physician MICHELLE AMOS MD, MA, FACP, FACC, FSCAI, CCDS HPI: Chief Complaint: Gen malaise HPI 89 yo man admitted through ER to Dr Tolbert'junie after he had presented with gen malaise and weakness and some cough and intermittently runny nose. No fever or chills. No significant shortness of breath. 2-3 days prior to admission, had some L shoulder discomfort that was worse with motion, mild, somewhat sharp, nonradiating, w/o any associated symptoms, resolving in about an hour and so, and with no recurrence. Denies leg swelling or palp or syncope Review of Systems-Cardiology Review of Systems Constitutional: As described under HPI; No weight loss, No weight gain Ears/Nose/Throat: No ear discharge; nasal drainage; No recent hearing loss Respiratory: no symptoms reported Cardiovascular: no symptoms reported Gastrointestinal: No diarrhea, No nausea, No vomiting Genitourinary: No dysuria, No hematuria, No urine frequency changes Musculoskeletal: back pain (chronic) Skin: No rash, No ulcerations Psychiatric/Neurological: No seizure, No focal weakness, No syncope Hematologic: No bleeding abnormalities KSW-Dfkxmt-Eupree Hx Patient Social History 2nd Hand Smoke Exposure: No Have you traveled recently?: No Alcohol Use?: No Pt feels they are or have been: No Immunizations Up To Date Date of Pneumonia Vaccine: Dec 17, 2013 Date of Influenza Vaccine: Dec 17, 2013 Past Medical History PMH As described under Assessment. Family Medical History Family Medical History: Does not report fam h/o early CAD or SCD Allergies and Home Medications Allergies Coded Allergies: No Known Drug Allergies (Verified , 07/17/07) Home Medications Apixaban 5 Mg Tablet, 5 MG PO BID, (Reported) Last Action: Reviewed Aspirin 81 Mg Tablet.dr, 81 MG PO DAILY, (Reported) Last Action: Reviewed Diltiazem HCl 240 Mg Cap.er.24h, 240 MG PO BID, (Reported) Last Action: Reviewed Levothyroxine Sodium 88 Mcg Tablet, 88 MCG PO DAILY, (Reported) Last Action: Reviewed Spironolactone 25 Mg Tablet, 25 MG PO DAILY, (Reported) Last Action: Reviewed Patient Home Medication List Home Medication List Reviewed: Yes Physical Exam-Cardiology Physical Exam Vital Signs/I&O 11/04/20 11/04/20 11/04/20 04:05 08:00 09:33 Temp 36.6 36.0 Pulse 76 76 Resp 18 20 B/P (MAP) 133/66 (88) 122/58 (79) Pulse Ox 95 96 97 O2 Delivery Room Air Room Air Room Air 11/03/20 23:59 Intake Total 1000 ml Balance 1000 ml Capillary Refill : Less Than 3 Seconds Constitutional: AAO x 3, well-nourished HEENT: EOMI, hearing is well preserved; No xanthelasmas are seen Neck: carotid pulses are 2 + bilaterally, with good upstrokes Respiratory: No accessory muscle use; other (good, bilateral air entry) Cardiovascular: regular rate-rhythm, S1 and S2, systolic murmur (soft KEVIN at card basee) Gastrointestinal: No tender; soft; No guarding, No audible bowel sounds Extremities: No clubbing, No cyanosis, No significant edema Neurologic/Psychiatric: oriented x 3, other (moves all limbs equally) Skin: No rash on exposed areas, No ulcerations on exposed areas Data Review Labs Laboratory Tests 11/03/20 16:10: SARS-CoV-2 RNA (RT-PCR) DetectedH 11/03/20 16:15: White Blood Count 10.0, Red Blood Count 4.92, Hemoglobin 15.2, Hematocrit 46, Mean Corpuscular Volume 94, Mean Corpuscular Hemoglobin 31, Mean Corpuscular Hemoglobin Concent 33, Red Cell Distribution Width 14.0, Platelet Count 235, Mean Platelet Volume 10.3, Immature Granulocyte % (Auto) 0, Neutrophils (%) (Auto) 85H, Lymphocytes (%) (Auto) 10L, Monocytes (%) (Auto) 4, Eosinophils (%) (Auto) 0, Basophils (%) (Auto) 0, Neutrophils # (Auto) 8.6H, Lymphocytes # (Auto) 1.0, Monocytes # (Auto) 0.4, Eosinophils # (Auto) 0.0, Basophils # (Auto) 0.0, Immature Granulocyte # (Auto) 0.0, Prothrombin Time 15.3H, INR Comment 1.2, Activated Partial Thromboplast Time 41H, D-Dimer 0.55H, Sodium Level 132L, Potassium Level 5.0, Chloride Level 104, Carbon Dioxide Level 17L, Anion Gap 11, Blood Urea Nitrogen 27H, Creatinine 1.39H, Estimat Glomerular Filtration Rate 48, BUN/Creatinine Ratio 19, Glucose Level 109H, Calcium Level 9.4, Corrected Calcium 9.6, Magnesium Level 1.8, Total Bilirubin 0.4, Aspartate Amino Transf (AST/SGOT) 33, Alanine Aminotransferase (ALT/SGPT) 16, Alkaline Phosphatase 83, Myoglobin 66.4, Troponin I 0.029H, B-Type Natriuretic Peptide 20.3, Total Protein 7.2, Albumin 3.8 11/03/20 19:45: Troponin I 0.039H 11/03/20 22:04: Urine Color YELLOW, Urine Clarity CLEAR, Urine pH 6.0, Urine Specific [place] >=1.030, Urine Protein 1+H, Urine Glucose (UA) NEGATIVE, Urine Ketones TRACEH, Urine Nitrite NEGATIVE, Urine Bilirubin NEGATIVE, Urine Urobilinogen 0.2, Urine Leukocyte Esterase NEGATIVE, Urine RBC (Auto) NEGATIVE, Urine RBC NONE, Urine WBC 2-5, Urine Squamous Epithelial Cells RARE, Urine Crystals NONE, Urine Bacteria TRACE, Urine Casts NONE, Urine Mucus SMALLH, Urine Culture Indicated NO 11/04/20 05:40: White Blood Count 6.2, Red Blood Count 4.51, Hemoglobin 13.9, Hematocrit 42, Mean Corpuscular Volume 93, Mean Corpuscular Hemoglobin 31, Mean Corpuscular Hemoglobin Concent 33, Red Cell Distribution Width 14.1, Platelet Count 217, Mean Platelet Volume 10.3, Immature Granulocyte % (Auto) 0, Neutrophils (%) (Auto) 68, Lymphocytes (%) (Auto) 23, Monocytes (%) (Auto) 7, Eosinophils (%) (Auto) 1, Basophils (%) (Auto) 0, Neutrophils # (Auto) 4.2, Lymphocytes # (Auto) 1.4, Monocytes # (Auto) 0.4, Eosinophils # (Auto) 0.1, Basophils # (Auto) 0.0, Immature Granulocyte # (Auto) 0.0, Sodium Level 136, Potassium Level 4.0, Chloride Level 108H, Carbon Dioxide Level 17L, Anion Gap 11, Blood Urea Nitrogen 22H, Creatinine 1.18, Estimat Glomerular Filtration Rate 58, BUN/Creatinine Ratio 19, Glucose Level 92, Calcium Level 9.2, Troponin I < 0.028, Triglycerides Level 100, Cholesterol Level 152, LDL Cholesterol Direct 112, VLDL Cholesterol 20, HDL Cholesterol 28L Laboratory Tests 11/03/20 16:15 11/04/20 05:40 A/P-Cardiology Assessment/Admission Diagnosis COVID-19 positive status (has previously been fully vaccinated) managed by Dr Tolbert Minimal troponin elevation at time of presentation, etiology undetermine - No evidence of ac RI. Troponin pattern (0.29, 0.039, <0.028) does not fit RI pattern (either type I or type II) Paroxysmal atrial flutter/fibrillation: - Chronic anticoagulation with apixaban that he has tolerated well CAD - h/o CRUZ to a large RI in 2005. 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 Tracy. Discussion and Recomendations There is no evidence of ACS I interviewed and examined him and reviewed his hospital and office records I had a detailed discussion with him regarding his CV issues We recommend continuation of previous cardiac regimen and outpt cardiac f/u Ok to d/c from cardiac standpoint MICHELLE AMOS MD FACP FAC CCDS Nov 04, 2020 13:34
--- NOTE | 2020-11-04 14:11 | Discharge Summary ---
Discharge Summary Hospital Course Problems/Dx: (1) COVID-19 Status: Acute Hospital Course Date of Admission: Nov 03, 2020 at 21:18 Admission Diagnosis : COVID-19 Family Physician/Provider: Laurent Tracy MD Date of Discharge: 11/04/20 Discharge Diagnosis: COVID-19 Hospital Course: Fabrice Bates is an 89-year-old male who was admitted with COVID-19. He is fully vaccinated. He presented with a cough. He has been having cold-like symptoms for about 2 weeks. He was not requiring any supplemental oxygen. He had a mildly elevated troponin. Cardiology was consulted and did not believe that his symptoms to be consistent with acute coronary syndrome. He was discharged home in stable condition. He will be required to remain in isolation. Follow-up with his primary care physician in a couple weeks. Labs and Pending Lab Test: Laboratory Tests 11/03/20 16:10: SARS-CoV-2 RNA (RT-PCR) DetectedH 11/03/20 16:15: White Blood Count 10.0, Red Blood Count 4.92, Hemoglobin 15.2, Hematocrit 46, Mean Corpuscular Volume 94, Mean Corpuscular Hemoglobin 31, Mean Corpuscular Hemoglobin Concent 33, Red Cell Distribution Width 14.0, Platelet Count 235, Mean Platelet Volume 10.3, Immature Granulocyte % (Auto) 0, Neutrophils (%) (Auto) 85H, Lymphocytes (%) (Auto) 10L, Monocytes (%) (Auto) 4, Eosinophils (%) (Auto) 0, Basophils (%) (Auto) 0, Neutrophils # (Auto) 8.6H, Lymphocytes # (Auto) 1.0, Monocytes # (Auto) 0.4, Eosinophils # (Auto) 0.0, Basophils # (Auto) 0.0, Immature Granulocyte # (Auto) 0.0, Prothrombin Time 15.3H, INR Comment 1.2, Activated Partial Thromboplast Time 41H, D-Dimer 0.55H, Sodium Level 132L, Potassium Level 5.0, Chloride Level 104, Carbon Dioxide Level 17L, Anion Gap 11, Blood Urea Nitrogen 27H, Creatinine 1.39H, Estimat Glomerular Filtration Rate 48, BUN/Creatinine Ratio 19, Glucose Level 109H, Calcium Level 9.4, Corrected Calcium 9.6, Magnesium Level 1.8, Total Bilirubin 0.4, Aspartate Amino Transf (AST/SGOT) 33, Alanine Aminotransferase (ALT/SGPT) 16, Alkaline Phosphatase 83, Myoglobin 66.4, Troponin I 0.029H, B-Type Natriuretic Peptide 20.3, Total Protein 7.2, Albumin 3.8 11/03/20 19:45: Troponin I 0.039H 11/03/20 22:04: Urine Color YELLOW, Urine Clarity CLEAR, Urine pH 6.0, Urine Specific [place] >=1.030, Urine Protein 1+H, Urine Glucose (UA) NEGATIVE, Urine Ketones TRACEH, Urine Nitrite NEGATIVE, Urine Bilirubin NEGATIVE, Urine Urobilinogen 0.2, Urine Leukocyte Esterase NEGATIVE, Urine RBC (Auto) NEGATIVE, Urine RBC NONE, Urine WBC 2-5, Urine Squamous Epithelial Cells RARE, Urine Crystals NONE, Urine Bacteria TRACE, Urine Casts NONE, Urine Mucus SMALLH, Urine Culture Indicated NO 11/04/20 05:40: White Blood Count 6.2, Red Blood Count 4.51, Hemoglobin 13.9, Hematocrit 42, Mean Corpuscular Volume 93, Mean Corpuscular Hemoglobin 31, Mean Corpuscular Hemoglobin Concent 33, Red Cell Distribution Width 14.1, Platelet Count 217, Mean Platelet Volume 10.3, Immature Granulocyte % (Auto) 0, Neutrophils (%) (Auto) 68, Lymphocytes (%) (Auto) 23, Monocytes (%) (Auto) 7, Eosinophils (%) (Auto) 1, Basophils (%) (Auto) 0, Neutrophils # (Auto) 4.2, Lymphocytes # (Auto) 1.4, Monocytes # (Auto) 0.4, Eosinophils # (Auto) 0.1, Basophils # (Auto) 0.0, Immature Granulocyte # (Auto) 0.0, Sodium Level 136, Potassium Level 4.0, Chloride Level 108H, Carbon Dioxide Level 17L, Anion Gap 11, Blood Urea Nitrogen 22H, Creatinine 1.18, Estimat Glomerular Filtration Rate 58, BUN/Creatinine Ratio 19, Glucose Level 92, Calcium Level 9.2, Troponin I < 0.028, Triglycerides Level 100, Cholesterol Level 152, LDL Cholesterol Direct 112, VLDL Cholesterol 20, HDL Cholesterol 28L Home Meds Active Reported Aspirin EC (Aspirin) 81 Mg Tablet.dr 81 Mg PO DAILY Eliquis (Apixaban) 5 Mg Tablet 5 Mg PO BID Diltiazem 24Hr ER (Diltiazem HCl) 240 Mg Cap.er.24h 240 Mg PO BID Levothyroxine Sodium 88 Mcg Tablet 88 Mcg PO DAILY Spironolactone 25 Mg Tablet 25 Mg PO DAILY Assessment/Pt Instructions Take medications as prescribed. Follow-up with your PCP. Return with worsening symptoms. Discharge Planning: <30 minutes discharge planning Discharge Instructions Discharge Diet: Low Sodium Diet Activity as Tolerated: Yes Consultations Cardiology Discharge Physical Examination Vital Signs Vital Signs Date Time Temp Pulse Resp B/P (MAP) Pulse Ox O2 Delivery O2 Flow Rate FiO2 11/04/20 12:00 36.1 86 20 111/57 (75) 96 Room Air General Appearance: No Apparent Distress, WD/WN HEENT: PERRL/EOMI, Pharynx Normal Respiratory: Lungs Clear, Normal Breath Sounds, No Respiratory Distress Cardiovascular: Regular Rate, Rhythm, No Edema, No Murmur Gastrointestinal: Normal Bowel Sounds, Non Tender, Soft Extremity: Normal Inspection, Non Tender, No Pedal Edema Skin: Normal Color, Warm/Dry Neurologic/Psychiatric: Alert, Oriented x3, No Motor/Sensory Deficits, Normal Mood/Affect Allergies: Coded Allergies: No Known Drug Allergies (Verified , 07/17/07) Discharge Summary Date of Admission Nov 03, 2020 at 21:18 Date of Discharge Discharge Date: Nov 04, 2020 Discharge Time: 14:08 Admission Diagnosis COVID-19 Consults/Procedures Consulations Cardiology Discharge Diagnosis (1) COVID-19 Status: Acute (2) Elevated troponin Status: Acute DOUG SRINIVASAN MD Nov 04, 2020 14:11
[2020-11-04 15:05] VITALS: BP 111/57
[2020-11-04] MEDS ORDERED: ACETAMINOPHEN 325 MG TABLET PO SCH (21:00)
[2020-11-04] MEDS ORDERED: diphenhydrAMINE 25 MG TAB (BENADRYL) PO SCH (21:00)
== END 2020-11-04 15:05 | disposition home or self-care (01) ==
LOC: EDUNIT# 15:39 → ER 15:42 → 4TH 21:18 → UNDOADMOB 21:18 → INTOOBSV 21:18 → 4TH 11-04 14:20 → UNDODISOB 11-06 09:20
PROVIDERS: ADMIT Internal Medicine; ATTEND Internal Medicine
DX: U07.1 COVID-19 (principal); R77.8 Other specified abnormalities of plasma proteins; E03.9 Hypothyroidism, unspecified; I25.10 Atherosclerotic heart disease of native coronary artery without angina pectoris; I48.0 Paroxysmal atrial fibrillation; I65.29 Occlusion and stenosis of unspecified carotid artery; Z79.01 Long term (current) use of anticoagulants; Z79.82 Long term (current) use of aspirin; Z79.890 Hormone replacement therapy; Z79.899 Other long term (current) drug therapy
CPT/HCPCS: 71045; 80048; 80053; 80061; 81000; 83735; 83874; 83880; 84484 ×2; 85025 ×2; 85379; 85610; 85730; 87636; 93005; 93041; 94640; 94760; 96360; 99284; G0378; 36415

== ENCOUNTER → 2021-01-18 | Outpatient (CLI) | payer MEDICARE, OTHER ==
[~2021-01-18] MED LIST changes: +APIX5TAB PO; +ASPI-1238 PO; +CATHETER FLUSH 10 ML SYR IV PRN; +CEFD300C3 PO; +DILT240C91 PO; +LEVO88TA54 PO; +REGADENOSON 0.4 MG/5 ML SYR (LEXISCAN) IV ONE; +SPIR25TA5 PO
[2021-01-18 09:17] VITALS: BP 199/74
--- NOTE | 2021-01-19 13:30 | STRESS TEST ---
DATE OF SERVICE: 01/18/2021 RESTING AND POST REGADENOSON TECHNETIUM-99M TETROFOSMIN SPECT CT IMAGING ORDERING PHYSICIAN: Dr. Horton. PRIMARY PHYSICIAN: Dr. Tracy. CLINICAL DIAGNOSIS: Coronary artery disease. Baseline images were carried out after injection of 10.86 mCi of technetium-99m Tetrofosmin. This was followed by 0.4 mg of Regadenoson and 30.1 mCi of technetium-99m Tetrofosmin for stress imaging. The electrocardiogram showed sinus rhythm at baseline. It did not change significantly with the Regadenoson infusion. There was right bundle branch block at baseline, which remained unchanged. The patient reports some , but tolerated the procedure well overall. Review of images at rest and following stress indicates a small transient apical perfusion defect. Gated images show normal global left ventricular systolic function with normal regional wall motion. Left ventricular ejection fraction is calculated to be 66%. Left ventricular end diastolic volume is 45 mL. TID is absent (0.94). CONCLUSIONS: 1. This study is suggestive of a small amount of apical ischemia. 2. Normal regional wall motion. 3. Normal global left ventricular systolic function with a calculated ejection fraction of 66%. Job ID: [id number] DocumentID: [id number] Dictated Date: 01/19/2021 08:36:43 [employer] As[employer]er Date: 01/19/2021 13:29:53 Dictated By: MICHELLE HORTON MD, MA, FACP, FACC,
== END ==
LOC: CARD 08:15
PROVIDERS: ATTEND Internal Medicine Cardiovascular Disease
DX: I25.10 Atherosclerotic heart disease of native coronary artery without angina pectoris (principal)
CPT/HCPCS: 78452; 93017; A9502

== ENCOUNTER → 2021-05-20 | Outpatient (CLI) | payer MEDICARE, OTHER ==
[~2021-05-20] MED LIST changes: -CATHETER FLUSH 10 ML SYR IV PRN; -REGADENOSON 0.4 MG/5 ML SYR (LEXISCAN) IV ONE
[2021-05-20 07:02] LABS: POTASSIUM 4.4 MMOL/L (3.6-5.0)
[2021-05-20 07:03] LABS: CALCIUM 9.6 MG/DL (8.5-10.1)
[2021-05-20 07:07] LABS: CREATININE SERUM 1.37 MG/DL (0.60-1.30)
== END ==
LOC: LAB 06:37
PROVIDERS: ATTEND Internal Medicine
DX: I10 Essential (primary) hypertension (principal); I25.10 Atherosclerotic heart disease of native coronary artery without angina pectoris; E03.9 Hypothyroidism, unspecified
CPT/HCPCS: 36415; 80048; 80061; 84443